=== PATIENT | female | born 1980 | race Caucasian/White ===

== ENCOUNTER → 2017-03-24 | Outpatient (CLI) | payer OTHER ==
[~2017-03-24] MED LIST: ACET-749 PO; BCPILLS PO; CPR500 PO; SYN50 PO; TIMO0.2534
== END | disposition home or self-care (01) ==
LOC: C.PAPS 10:35
PROVIDERS: ATTEND Obstetrics & Gynecology
DX: Z12.4 Encounter for screening for malignant neoplasm of cervix (principal)

== ENCOUNTER → 2017-03-24 | Outpatient (CLI) | payer OTHER | END | disposition home or self-care (01) | LOC: C.LAB1850 15:38 | PROVIDERS: ATTEND Obstetrics & Gynecology | DX: Z11.3 Encounter for screening for infections with a predominantly sexual mode of transmission (principal) ==

== ENCOUNTER → 2017-03-24 | Outpatient (CLI) | payer OTHER ==
[2017-03-29 00:20] LABS: CHLAMYDIA TRACH RNA*** NOT DETECTED (NOT DETECTED); GC (NEIS GONORRHOEAE)RNA** NOT DETECTED (NOT DETECTED); TRICHOMONAS VAGINALIS RNA** NOT DETECTED (NOT DETECTED)
== END | disposition home or self-care (01) ==
LOC: C.LABSPEC 17:36
PROVIDERS: ATTEND Obstetrics & Gynecology
DX: Z11.3 Encounter for screening for infections with a predominantly sexual mode of transmission (principal)

== ENCOUNTER 2022-03-02 07:58 | Inpatient (IN) ==
[2022-03-02] MEDS ORDERED: OXYTOCIN 30 UNITS/500 ML BAG IV PRN ×2 (08:38→09:41)
[2022-03-02] MEDS ORDERED: PENICILLIN G POTASSIUM 6 MU in DEXTROSE 5% 250 ML IV STA (08:38)
[2022-03-02] MEDS: LACTATED RINGER'S 1,000 ML IV PRN ×2 (08:55→18:20)
[2022-03-02 09:38] LABS: Hematocrit (blood only) 35.6 % (37-47); Hemoglobin 11.7 g/dL (12.0-16.0); Mean Corpuscular Hemoglobin 30.3 pg (25-34); Mean Corpuscular Hgb Conc 32.9 g/dL (32-36); Mean Corpuscular Volume 92.2 fL (80-100); Mean Platelet Volume 10.2 fL (7.4-10.4); Platelet Count 239 K/uL (130-400); RDW Coefficient of Variation 14.1 % (11.5-14.5); Red Blood Count 3.86 M/uL (4.2-5.4); White Blood Count 9.77 K/uL (4.8-10.8)
--- NOTE | 2022-03-02 09:50 | History & Physical Report ---
Date of Service March 02, 2022 Assessment & Plan (1) Supervision of elderly primigravida: (2) GBS (group B streptococcus) infection: Plan: 41 y/o G1 at 41 wga presents for IOL BP was elevated initially as pt is very anxious, cuff was changed to bigger size but this was too big so BPs more elevated. Will get labs and see if pt can settle, if not then PIH protocol will need initiated Fetus cat 1 Labor - verbal consent for packer bulb obtained, packer bulb easily placed but dark blood was noted to be coming through catheter shortly after. Fetus remained cat 1 with an accel so will continue to monitor and pt aware. Pit will start up to 10 while balloon in GBS+ - pcn ordered epidural PRN Admission and Anticipated Discharge Date Admission Date: March 02, 2022 History of Present Illness Chief Complaint: IOL Primary Care Provider: NO PCP 41 y/o G1 at 41 wga presents for elective IOL. +FM; denies regular ctx, LOF, VB PNI: AMA> 40 hypothyroid cf carrier GBS+ Past [employer] Hx: G1 Hx LEEP 2007, 10/2020 neg cotest denies hx STIs Allergies Allergy/AdvReac Type Severity Reaction Status Date / Time latex Allergy Severe SHORT OF Verified 03/01/22 10:56 BREATH, HIVES meperidine Allergy Severe Vomiting Verified 03/01/22 10:56 hydrocodone AdvReac Severe Vomiting Verified 03/01/22 10:56 Home Medications Medication Instructions Recorded Confirmed Type bupropion HCl 300 mg 24 hr tablet, 300 mg PO QAM 08/08/20 03/02/22 History extended release (Wellbutrin XL) omeprazole 20 mg capsule,delayed 20 mg PO DAILY 08/08/20 03/02/22 History release timolol 0.5 % eye drops 1 drp OPHTHALMIC (EYE) BID 08/08/20 03/02/22 History prenat.vits,maribeth,[id number] 1 tab PO DAILY 07/17/21 03/02/22 History Jobst Stockings #1 ea 09/22/21 03/01/22 Rx levothyroxine 75 mcg tablet 75 mcg PO DAILY 11/11/21 03/02/22 History Patient History Medical History (Updated 02/05/22 @ 11:55 by Ivett PATEL RN) Achalasia Cervical dysplasia Depression H/O: glaucoma H/O: hypothyroidism History of chicken pox Mild acid reflux Surgical History H/O LEEP H/O right knee surgery H/O wisdom tooth extraction History of esophagogastroduodenoscopy (EGD) Hx laparoscopic cholecystectomy Hx of tonsillectomy Family History (Updated 07/17/21 @ 11:07 by Marquita Montoya) Aunt Breast cancer Mother Diabetes Hypertension Grandmother (Maternal) Heart disease Grandfather (Maternal) Heart disease Other Cancer Social History (Updated 07/17/21 @ 11:08 by Marquita Montoya) Smoking Status: Former smoker Second Hand Exposure: No; Do You Dip or Chew Tobacco: No; Tobacco Cessation Education Requested by Patient: No Hx Alcohol Use: No Hx Substance Use: No Preferred Language: Vincentian Communication Ability: Effective [employer] English Teacher Required: No Beliefs That Will Affect Care: None marital status: Single marital status details: gin Jones (33) [phone] Current Living Situation: Family Current Living Situation Comment: Lives with boyfriend, a dog, and 2 cats. 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 Other Information That Helps Us Care for You: No Feels Safe at Home: Yes Safety Concerns: Feels Safe At This Time Assistive Devices: None Physical Exam Genitourinary: OB Exam Abdomen: + vertex (confirmed by bsus) and + estimated weight (7-8) Manual OB Exam: + cervical dilation 1 cm, + cervical effacement 20% and + station -2 OB Exam Monitor Tracing: + external FHT monitor used, + external uterine monitor used (irreg ctx) and + category I (130/mod/+accel/-decel) Results & Data ([facility]) Vital Signs (Past 12 Hours) Vital Signs Temp Pulse Resp BP 03/02/22 09:33 92 H 164/92 H 03/02/22 09:32 90 182/90 H 03/02/22 09:26 98 H 186/102 H 03/02/22 09:24 91 H 178/90 H 03/02/22 09:12 95 H 179/92 H 03/02/22 08:10 98.4 F 97 H 18 160/89 H 03/02/22 08:08 97 H 160/89 H 03/02/22 08:06 100 H 174/96 H Laboratory Results OB Labs: Blood Type B Positive 07/24/21 Antibody Screen NEGATIVE 07/24/21 Hemoglobin 11.5 g/dL (12.0-16.0) L 12/11/21 Hematocrit 35.6 % (37-47) L 12/11/21 Mean Corpuscular Volume 93.3 fL (80-100) 07/24/21 Platelet Count 248 K/uL (130-400) 07/24/21 Rubella IgG Antibody Immune (Immune) 07/24/21 Rapid Plasma Reagin Nonreactive (Nonreactive) 07/24/21 Hepatitis B Surface Antigen Neg (Neg) 07/24/21 HIV (1&2) Ab and P24 Ag, 4th Gener Neg (Neg) 07/24/21 Glucose 1 Hour 50 gm Load 168 mg/dl (70-130) H 09/22/21 OB Optional Labs: Chlamydia trachomatis RNA NOT DETECTED (NOT DETECTED) 07/24/21 Neisseria gonorrhoeae RNA NOT DETECTED (NOT DETECTED) 07/24/21 Thyroid Stimulating Hormone (TSH) 1.790 uIu/ml (0.300-4.500) 07/24/21 GBS+ Diagnostic Findings 01/06 EFW 70%, post plac Coding Level of Care Code None Diagnoses Supervision of elderly primigravida O09.519 GBS (group B streptococcus) infection A49.1
[2022-03-02] MEDS ORDERED: LABETALOL HCL IV 5 MG/ML 20ML IV STA (10:02)
[2022-03-02] MEDS ORDERED: MAG SULFATE 4GM BOLUS FROM BAG IV ONE (10:02)
[2022-03-02 10:41] LABS: Albumin Globulin Ratio 1.2 (0.9-2); Albumin Level 3.4 gm/dl (3.4-5.0); BUN Creatinine Ratio 27.1 (10-20); Bilirubin,Total 0.3 mg/dl (0.2-1.0); Creatinine Clr Calc Pharmacy 175.1 ml/min; Est GFR (African American) 142.2 ml/min; Est GFR (Non-African American) 122.7 ml/min; Globulin 2.9 gm/dl (2.5-4.0); Potassium 3.8 mmol/L (3.5-5.1); Total Protein 6.3 gm/dl (6.0-8.3)
[2022-03-02] MEDS: MAGNESIUM SULFATE / WTR 40 GM/1,000 ML BAG IV SCH (10:45)
--- NOTE | 2022-03-02 11:23 | Communication Note ---
Date of Service: March 02, 2022 BPs were noted to remain elevated in severe range following change to appropriate BP cuff, and even when pt denied feeling more anxious. Denies s/s pre-eclampsia. Labs were ordered however given persistence of severe ranges, IV labetalol 20mg x 1 was given and magnesium started due to severe gestational hypertension. CMP has returned as normal, UP:C is currently pending. BPs improved to mild range BPs following labetalol and magnesium. Nursing noted bloody show but no further bleeding from packer balloon
[2022-03-02 11:43] LABS: Creatinine Urine Random 28.1 mg/dl; Protein Creatinine Ratio Urine 0.5 (0-0.2)
[2022-03-02] MEDS: PENICILLIN G POTASSIUM 3 MU in DEXTROSE 5% 100 ML IV PRN ×3 (13:23→21:30)
--- NOTE | 2022-03-02 17:17 | Labor Progress Brief Note ---
Date of Service March 02, 2022 Subjective Packer bulb out, feeling better Assessment & Plan (1) Supervision of elderly primigravida: (2) GBS (group B streptococcus) infection: Plan: 41 y/o G1 at 41 wga presents for IOL VSS Fetus cat 1 Labor - packer balloon out, will titrate pit PET w/ SF - on mag, met criteria by BPs and UPC. BPs ok now, continue to monitor GBS+ - pcn ordered epidural PRN Admission and Anticipated Discharge Date Admission Date: March 02, 2022 Physical Exam Genitourinary: Manual OB Exam: + cervical dilation 4 cm, + cervical effacement 50% and + station -2 OB Exam Monitor Tracing: + external FHT monitor used, + external uterine monitor used (q3-5) and + category I (125/mod/+accel/-decel) Results & Data ([facility]) Vital Signs (Past 12 Hours) Vital Signs Temp Pulse Resp BP Pulse Ox 03/02/22 17:10 91 H 99 03/02/22 17:05 91 H 97 03/02/22 17:01 91 H 139/80 03/02/22 17:00 90 99 03/02/22 16:55 93 H 99 03/02/22 16:50 90 99 03/02/22 16:45 89 99 03/02/22 16:40 90 98 03/02/22 16:35 89 97 03/02/22 16:31 87 128/76 03/02/22 16:30 90 18 98 03/02/22 16:25 90 98 03/02/22 16:20 92 H 97 03/02/22 16:15 89 97 03/02/22 16:10 88 99 03/02/22 16:05 89 96 03/02/22 16:01 87 138/71 03/02/22 16:00 93 H 98 03/02/22 15:55 90 96 03/02/22 15:50 91 H 96 03/02/22 15:45 88 97 03/02/22 15:40 87 97 03/02/22 15:35 85 97 03/02/22 15:30 97.9 F 92 H 18 132/62 97 03/02/22 15:25 80 97 03/02/22 15:20 88 137/77 97 03/02/22 15:15 89 97 03/02/22 15:10 91 H 98 03/02/22 15:05 89 139/79 100 03/02/22 15:01 16 03/02/22 15:00 89 95 03/02/22 14:59 89 93 03/02/22 14:54 89 92 03/02/22 14:53 87 93 03/02/22 14:49 86 133/76 94 03/02/22 14:47 88 93 03/02/22 14:44 91 H 92 03/02/22 14:39 87 91 03/02/22 14:35 85 133/81 03/02/22 14:33 93 H 89 L 03/02/22 14:32 82 90 03/02/22 14:30 16 03/02/22 14:28 89 97 03/02/22 14:23 85 96 03/02/22 14:21 84 124/74 03/02/22 14:18 87 97 03/02/22 14:13 86 97 03/02/22 14:08 86 98 03/02/22 14:05 88 132/80 03/02/22 14:03 87 97 03/02/22 14:00 16 03/02/22 13:58 87 100 03/02/22 13:53 89 100 03/02/22 13:50 85 135/80 03/02/22 13:48 90 100 03/02/22 13:43 90 99 03/02/22 13:38 91 H 98 03/02/22 13:35 89 143/87 H 03/02/22 13:33 95 H 100 03/02/22 13:30 16 03/02/22 13:28 85 99 03/02/22 13:23 87 98 03/02/22 13:20 93 H 113/77 03/02/22 13:18 94 H 97 03/02/22 13:13 92 H 97 03/02/22 13:08 84 96 03/02/22 13:05 87 133/83 03/02/22 13:03 91 H 96 03/02/22 13:00 16 03/02/22 12:58 90 96 03/02/22 12:53 87 96 03/02/22 12:49 88 128/76 03/02/22 12:48 82 95 03/02/22 12:43 89 95 03/02/22 12:38 98.1 F 88 18 95 03/02/22 12:33 88 93 03/02/22 12:32 87 94 03/02/22 12:31 89 119/72 03/02/22 12:30 16 03/02/22 12:28 90 93 03/02/22 12:27 89 94 03/02/22 12:23 93 H 95 03/02/22 12:20 85 135/78 03/02/22 12:18 85 94 03/02/22 12:15 80 94 03/02/22 12:13 85 95 03/02/22 12:11 82 129/74 03/02/22 12:08 85 96 03/02/22 12:03 84 96 03/02/22 12:02 84 134/81 03/02/22 12:00 16 03/02/22 11:58 85 96 03/02/22 11:53 84 97 03/02/22 11:51 83 132/83 03/02/22 11:48 83 98 03/02/22 11:43 81 97 03/02/22 11:42 81 138/83 03/02/22 11:38 79 95 03/02/22 11:33 83 95 03/02/22 11:32 84 136/71 03/02/22 11:30 16 03/02/22 11:28 84 97 03/02/22 11:23 71 98 03/02/22 11:21 83 136/86 03/02/22 11:18 84 97 03/02/22 11:13 85 97 03/02/22 11:11 85 142/91 H 03/02/22 11:08 80 96 03/02/22 11:03 86 96 03/02/22 11:00 83 18 147/83 H 03/02/22 10:58 91 H 98 03/02/22 10:53 90 98 03/02/22 10:51 77 142/82 H 03/02/22 10:48 81 96 03/02/22 10:45 18 03/02/22 10:43 83 97 03/02/22 10:41 82 135/75 03/02/22 10:38 81 98 03/02/22 10:34 83 137/76 03/02/22 10:33 81 97 03/02/22 10:25 18 03/02/22 10:19 88 158/96 H 03/02/22 10:17 87 161/89 H 03/02/22 10:10 98.6 F 18 03/02/22 09:57 86 173/95 H 03/02/22 09:33 92 H 164/92 H 03/02/22 09:32 90 182/90 H 03/02/22 09:26 98 H 186/102 H 03/02/22 09:24 91 H 178/90 H 03/02/22 09:12 95 H 179/92 H 03/02/22 08:10 98.4 F 97 H 18 160/89 H 03/02/22 08:08 97 H 160/89 H 03/02/22 08:06 100 H 174/96 H Coding Level of Care Code None Diagnoses Supervision of elderly primigravida O09.519 GBS (group B streptococcus) infection A49.1
--- NOTE | 2022-03-02 19:19 | Labor Progress Brief Note ---
Date of Service March 02, 2022 Subjective Feels better on side Assessment & Plan (1) Supervision of elderly primigravida: (2) GBS (group B streptococcus) infection: Plan: 41 y/o G1 at 41 wga presents for IOL VSS Fetus cat 1 Labor - cont pit augmentation, now s/p arom PET w/ SF - on mag, met criteria by BPs and UPC. BPs ok now, continue to monitor GBS+ - pcn ordered epidural PRN Admission and Anticipated Discharge Date Admission Date: March 02, 2022 Physical Exam Genitourinary: OB Exam Abdomen: + vertex (confirmed by bsus) Manual OB Exam: + cervical dilation (4-5), + cervical effacement 50%, + station -2 and + amniotic fluid (AROM) OB Exam Monitor Tracing: + external FHT monitor used, + external uterine monitor used (q3-5) and + category I (125/mod/+accel/-decel) Results & Data ([facility]) Vital Signs (Past 12 Hours) Vital Signs Temp Pulse Resp BP Pulse Ox 03/02/22 19:15 95 H 97 03/02/22 19:10 96 H 98 03/02/22 19:05 99 H 96 03/02/22 19:01 96 H 129/71 03/02/22 19:00 98 H 97 03/02/22 18:55 96 H 96 03/02/22 18:50 95 H 97 03/02/22 18:45 96 H 98 03/02/22 18:40 95 H 96 03/02/22 18:35 94 H 97 03/02/22 18:31 96 H 137/89 03/02/22 18:30 94 H 18 98 03/02/22 18:25 92 H 99 03/02/22 18:20 90 97 03/02/22 18:15 86 98 03/02/22 18:10 88 99 03/02/22 18:05 90 98 03/02/22 18:01 86 137/86 03/02/22 18:00 88 98 03/02/22 17:55 92 H 97 03/02/22 17:50 92 H 98 03/02/22 17:45 92 H 98 03/02/22 17:40 93 H 99 03/02/22 17:35 97 H 99 03/02/22 17:32 91 H 127/70 03/02/22 17:30 95 H 98 03/02/22 17:25 95 H 98 03/02/22 17:24 18 03/02/22 17:20 94 H 97 03/02/22 17:15 91 H 98 03/02/22 17:10 91 H 99 03/02/22 17:05 91 H 97 03/02/22 17:01 91 H 139/80 03/02/22 17:00 90 99 03/02/22 16:55 93 H 99 03/02/22 16:50 90 99 03/02/22 16:45 89 99 03/02/22 16:40 90 98 03/02/22 16:35 89 97 03/02/22 16:31 87 128/76 03/02/22 16:30 90 18 98 03/02/22 16:25 90 98 03/02/22 16:20 92 H 97 03/02/22 16:15 89 97 03/02/22 16:10 88 99 03/02/22 16:05 89 96 03/02/22 16:01 87 138/71 03/02/22 16:00 93 H 98 03/02/22 15:55 90 96 03/02/22 15:50 91 H 96 03/02/22 15:45 88 97 03/02/22 15:40 87 97 03/02/22 15:35 85 97 03/02/22 15:30 97.9 F 92 H 18 132/62 97 03/02/22 15:25 80 97 03/02/22 15:20 88 137/77 97 03/02/22 15:15 89 97 03/02/22 15:10 91 H 98 03/02/22 15:05 89 139/79 100 03/02/22 15:01 16 03/02/22 15:00 89 95 03/02/22 14:59 89 93 03/02/22 14:54 89 92 03/02/22 14:53 87 93 03/02/22 14:49 86 133/76 94 03/02/22 14:47 88 93 03/02/22 14:44 91 H 92 03/02/22 14:39 87 91 03/02/22 14:35 85 133/81 03/02/22 14:33 93 H 89 L 03/02/22 14:32 82 90 03/02/22 14:30 16 03/02/22 14:28 89 97 03/02/22 14:23 85 96 03/02/22 14:21 84 124/74 03/02/22 14:18 87 97 03/02/22 14:13 86 97 03/02/22 14:08 86 98 03/02/22 14:05 88 132/80 03/02/22 14:03 87 97 03/02/22 14:00 16 03/02/22 13:58 87 100 03/02/22 13:53 89 100 03/02/22 13:50 85 135/80 03/02/22 13:48 90 100 03/02/22 13:43 90 99 03/02/22 13:38 91 H 98 03/02/22 13:35 89 143/87 H 03/02/22 13:33 95 H 100 03/02/22 13:30 16 03/02/22 13:28 85 99 03/02/22 13:23 87 98 03/02/22 13:20 93 H 113/77 03/02/22 13:18 94 H 97 03/02/22 13:13 92 H 97 03/02/22 13:08 84 96 03/02/22 13:05 87 133/83 03/02/22 13:03 91 H 96 03/02/22 13:00 16 03/02/22 12:58 90 96 03/02/22 12:53 87 96 03/02/22 12:49 88 128/76 03/02/22 12:48 82 95 03/02/22 12:43 89 95 03/02/22 12:38 98.1 F 88 18 95 03/02/22 12:33 88 93 03/02/22 12:32 87 94 03/02/22 12:31 89 119/72 03/02/22 12:30 16 03/02/22 12:28 90 93 03/02/22 12:27 89 94 03/02/22 12:23 93 H 95 03/02/22 12:20 85 135/78 03/02/22 12:18 85 94 03/02/22 12:15 80 94 03/02/22 12:13 85 95 03/02/22 12:11 82 129/74 03/02/22 12:08 85 96 03/02/22 12:03 84 96 03/02/22 12:02 84 134/81 03/02/22 12:00 16 03/02/22 11:58 85 96 03/02/22 11:53 84 97 03/02/22 11:51 83 132/83 03/02/22 11:48 83 98 03/02/22 11:43 81 97 03/02/22 11:42 81 138/83 03/02/22 11:38 79 95 03/02/22 11:33 83 95 03/02/22 11:32 84 136/71 03/02/22 11:30 16 03/02/22 11:28 84 97 03/02/22 11:23 71 98 03/02/22 11:21 83 136/86 03/02/22 11:18 84 97 03/02/22 11:13 85 97 03/02/22 11:11 85 142/91 H 03/02/22 11:08 80 96 03/02/22 11:03 86 96 03/02/22 11:00 83 18 147/83 H 03/02/22 10:58 91 H 98 03/02/22 10:53 90 98 03/02/22 10:51 77 142/82 H 03/02/22 10:48 81 96 03/02/22 10:45 18 03/02/22 10:43 83 97 03/02/22 10:41 82 135/75 03/02/22 10:38 81 98 03/02/22 10:34 83 137/76 03/02/22 10:33 81 97 03/02/22 10:25 18 03/02/22 10:19 88 158/96 H 03/02/22 10:17 87 161/89 H 03/02/22 10:10 98.6 F 18 03/02/22 09:57 86 173/95 H 03/02/22 09:33 92 H 164/92 H 03/02/22 09:32 90 182/90 H 03/02/22 09:26 98 H 186/102 H 03/02/22 09:24 91 H 178/90 H 03/02/22 09:12 95 H 179/92 H 03/02/22 08:10 98.4 F 97 H 18 160/89 H 03/02/22 08:08 97 H 160/89 H 03/02/22 08:06 100 H 174/96 H Coding Level of Care Code None Diagnoses Supervision of elderly primigravida O09.519 GBS (group B streptococcus) infection A49.1
[2022-03-02] MEDS ORDERED: ePHEDrine sulfate 50 MG/ML AMP ONE (19:53)
[2022-03-02] MEDS ORDERED: fentaNYL 2MCG/ML ROPIVACAINE 1.25MG/ML 100 ML BAG EPI ONE (19:54)
[2022-03-02] MEDS ORDERED: SODIUM CHLORIDE 0.9% INJ 10 ML VIAL ONE (19:54)
[2022-03-02] MEDS ORDERED: fentaNYL citrate 100 MCG/2 ML VIAL ONE (19:54)
[2022-03-02] MEDS ORDERED: BUPIVACAINE 0.25% 30 ML VIAL ONE (19:54)
--- NOTE | 2022-03-02 21:00 | Anesthesiology Consultation ---
Date of Service March 02, 2022 Assessment & Plan Chart Review Chart Review: Acceptable Risk for Labor Epidural Consults Requested none History Height/Weight Height: 5 ft 3 in Weight: 99.337 kg Allergies Allergy/AdvReac Type Severity Reaction Status Date / Time latex Allergy Severe SHORT OF Verified 03/01/22 10:56 BREATH, HIVES meperidine Allergy Severe Vomiting Verified 03/01/22 10:56 hydrocodone AdvReac Severe Vomiting Verified 03/01/22 10:56 Medications Home Medications Medication Instructions Recorded Confirmed Last Taken bupropion HCl 300 mg 24 hr tablet, 300 mg PO QAM 08/08/20 03/02/22 03/02/22 06:00 extended release (Wellbutrin XL) omeprazole 20 mg capsule,delayed 20 mg PO DAILY 08/08/20 03/02/22 03/02/22 06:00 release timolol 0.5 % eye drops 1 drp OPHTHALMIC (EYE) BID 08/08/20 03/02/22 03/02/22 06:00 prenat.vits,maribeth,[id number] 1 tab PO DAILY 07/17/21 03/02/22 03/02/22 06:00 Jobst Stockings #1 ea 09/22/21 03/01/22 Unknown levothyroxine 75 mcg tablet 75 mcg PO DAILY 11/11/21 03/02/22 03/02/22 06:00 Active Medications Generic Name Dose Route Start Last Admin Trade Name Freq PRN Reason Stop Dose Admin Lactated Ringer's 1,000 mls @ 125 mls/hr 03/02/22 08:38 03/02/22 20:19 Lr IV 03/04/22 08:37 75 mls/hr .Q8H PRN Infusion L&D Protocol Protocol Penicillin G Potassium 3 mu/ 106 mls @ 100 mls/hr 03/02/22 11:39 03/02/22 18:20 Dextrose IV 03/12/22 11:38 Infused Q4H PRN Infusion GBS(+) Until Delivery Oxytocin 30 units in 500 mls @ 16 mls/hr 03/02/22 09:41 03/02/22 17:57 Pitocin IV 03/04/22 09:40 0.96 units/hr .Q24H PRN 16 mls/hr Labor Induction/Augmentation Titration Protocol 0.96 UNITS/HR Magnesium Sulfate 40 gm in 1,000 mls @ 50 mls/hr 03/02/22 10:15 03/02/22 15:00 Magnesium Sulfate / Wtr IV 04/01/22 10:14 50 mls/hr .Q20H NICOLLE Infusion Past Medical History Medical History Achalasia Cervical dysplasia Depression H/O: glaucoma H/O: hypothyroidism History of chicken pox Mild acid reflux Past Family History Family History Aunt Breast cancer Mother Diabetes Hypertension Grandmother (Maternal) Heart disease Grandfather (Maternal) Heart disease Other Cancer Past Surgical History Surgical History H/O LEEP H/O right knee surgery H/O wisdom tooth extraction History of esophagogastroduodenoscopy (EGD) Hx laparoscopic cholecystectomy Hx of tonsillectomy Social History Smoking Status: Former smoker Do You Dip or Chew Tobacco: No Hx Alcohol Use: No Hx Substance Use: No substance use type: does not use Physical Exam Vital Signs Last Vital Signs Temp 36.7 C 03/02/22 19:10 Pulse 97 H 03/02/22 20:55 Resp 18 03/02/22 19:30 BP 137/84 03/02/22 20:54 Pulse Ox 97 03/02/22 20:55 Testing Laboratory Results 03/02/22 09:01 03/02/22 10:00
[2022-03-02] MEDS ORDERED: NALOXONE HCL 1 MG in SODIUM CHLORIDE 0.9% 1000ML 1,000 ML IV PRN (21:01)
[2022-03-02] MEDS ORDERED: NALOXONE HCL 0.4 MG/1 ML VIAL/CARP IV PRN (21:01)
[2022-03-02] MEDS ORDERED: diphenhydrAMINE 50 MG/ML VIAL IV PRN (21:01)
[2022-03-02] MEDS ORDERED: NALBUPHINE HCL INJ 10 MG/ML AMP IV PRN (21:01)
[2022-03-02] MEDS ORDERED: ePHEDrine sulfate 50 MG/ML AMP IV PRN (21:01)
[2022-03-02] MEDS ORDERED: ACETAMINOPHEN 500 MG TAB PO PRN (23:10)
[2022-03-02] MEDS ORDERED: Nursing to Pharmacy Communication SCH (23:15)
[2022-03-02] MEDS ORDERED: ACETAMINOPHEN 500 MG TAB ONE (23:21)
[2022-03-03] MEDS ORDERED: fentaNYL citrate 100 MCG/2 ML VIAL ONE ×2 (00:57→03:28)
[2022-03-03] MEDS ORDERED: LIDOCAINE 2% MPF LOCAL 5 ML VIAL INFIL ONE ×2 (00:57→03:28)
--- NOTE | 2022-03-03 01:40 | Communication Note ---
Date of Service: March 03, 2022 Called for pt c/o pain. VSS. Bolused epidural with 2% lidocaine 5cc plus fentanyl 100mcg with relief.
[2022-03-03] MEDS: PENICILLIN G POTASSIUM 3 MU in DEXTROSE 5% 100 ML IV PRN ×4 (01:49→14:03)
[2022-03-03] MEDS: LACTATED RINGER'S 1,000 ML IV PRN ×2 (01:51→15:44)
[2022-03-03] MEDS: fentaNYL 2MCG/ML ROPIVACAINE 1.25MG/ML 100 ML BAG EPI PRN ×3 (03:17→15:07)
--- NOTE | 2022-03-03 03:38 | Communication Note ---
Date of Service: March 03, 2022 Called for pt c/o pain. VSS. Bolused epidural with 2% lidocaine plus fentanyl 100mcg with relief.
[2022-03-03] MEDS: MAGNESIUM SULFATE / WTR 40 GM/1,000 ML BAG IV SCH ×2 (03:47→22:29)
--- NOTE | 2022-03-03 05:00 | Labor Progress Brief Note ---
Date of Service March 03, 2022 Subjective Had difficulty with pain again and now more comfortable w/ rebolus Assessment & Plan (1) Supervision of elderly primigravida: (2) GBS (group B streptococcus) infection: Plan: 41 y/o G1 at 41 wga presents for IOL VSS Fetus cat 1 Labor - 7-8 since around 2AM, pit is at 24. Pt has hx LEEP, the inner edge of the cervix feels tight like there is scarring. As pit is maxed to 24 will do a pit break and restart in 45 min PET w/ SF - on mag, met criteria by BPs and UPC. BPs ok now, continue to monitor. UOP was adequate, decreased now and appears concentrated. 250cc bolus given to see if will help GBS+ - pcn ordered epidural in place Admission and Anticipated Discharge Date Admission Date: March 02, 2022 Physical Exam Genitourinary: Manual OB Exam: + cervical dilation (7-8), + cervical effacem ent 80% and + station -2 OB Exam Monitor Tracing: + external FHT monitor used, + intra-uterine pressure catheter used (130/mod/+accel/-decel) and + category I (130/mod/+accel/-decel) Results & Data ([facility]) Vital Signs (Past 12 Hours) Vital Signs Temp Pulse Resp BP Pulse Ox 03/03/22 04:50 95 H 100 03/03/22 04:47 96 H 171/96 H 03/03/22 04:45 95 H 99 03/03/22 04:40 93 H 98 03/03/22 04:35 93 H 97 03/03/22 04:32 93 H 156/88 H 03/03/22 04:30 94 H 18 95 03/03/22 04:26 92 H 94 03/03/22 04:25 93 H 95 03/03/22 04:21 93 H 94 03/03/22 04:20 93 H 95 03/03/22 04:16 94 H 137/78 94 03/03/22 04:15 94 H 95 03/03/22 04:10 94 H 95 03/03/22 04:05 95 H 95 03/03/22 04:01 95 H 94 03/03/22 04:00 93 H 139/73 95 03/03/22 03:55 92 H 96 03/03/22 03:54 91 H 141/75 H 94 03/03/22 03:50 95 H 94 03/03/22 03:49 96 H 125/71 94 03/03/22 03:45 97 H 93 03/03/22 03:44 99 H 139/81 03/03/22 03:43 101 H 94 03/03/22 03:40 99 H 96 03/03/22 03:39 96 H 159/85 H 03/03/22 03:35 102 H 97 03/03/22 03:33 97 H 174/84 H 03/03/22 03:32 20 03/03/22 03:30 101 H 18 98 03/03/22 03:27 96 H 185/91 H 03/03/22 03:25 97 H 97 03/03/22 03:20 101 H 99 03/03/22 03:15 116 H 97 03/03/22 03:14 98.4 F 03/03/22 03:12 107 H 178/124 H 03/03/22 03:10 105 H 98 03/03/22 03:05 101 H 97 03/03/22 03:00 100 H 20 98 03/03/22 02:57 102 H 184/101 H 03/03/22 02:55 102 H 96 03/03/22 02:50 104 H 95 03/03/22 02:48 103 H 94 03/03/22 02:45 101 H 96 03/03/22 02:42 100 H 179/95 H 03/03/22 02:40 100 H 98 03/03/22 02:35 101 H 99 03/03/22 02:34 101 H 94 03/03/22 02:30 103 H 20 98 03/03/22 02:28 100 H 159/94 H 03/03/22 02:27 100 H 94 03/03/22 02:25 100 H 97 03/03/22 02:20 102 H 98 03/03/22 02:17 18 03/03/22 02:16 99 H 93 03/03/22 02:15 101 H 97 03/03/22 02:12 97 H 189/94 H 03/03/22 02:10 96 H 98 03/03/22 02:05 94 H 94 03/03/22 02:00 94 H 97 03/03/22 01:57 95 H 139/81 03/03/22 01:55 95 H 96 03/03/22 01:50 94 H 95 03/03/22 01:45 93 H 96 03/03/22 01:43 91 H 150/78 H 03/03/22 01:40 93 H 95 03/03/22 01:35 96 H 95 03/03/22 01:31 18 03/03/22 01:30 94 H 95 03/03/22 01:28 93 H 136/84 03/03/22 01:25 94 H 96 03/03/22 01:20 101 H 96 03/03/22 01:15 97 H 96 03/03/22 01:12 96 H 127/73 03/03/22 01:10 97 H 96 03/03/22 01:05 94 H 97 03/03/22 01:01 98.4 F 18 03/03/22 01:00 93 H 98 03/03/22 00:58 90 140/82 03/03/22 00:55 92 H 96 03/03/22 00:50 86 98 03/03/22 00:45 91 H 97 03/03/22 00:43 88 149/74 H 03/03/22 00:41 89 94 03/03/22 00:40 89 95 03/03/22 00:35 91 H 99 03/03/22 00:34 89 93 03/03/22 00:30 88 18 99 03/03/22 00:27 92 H 94 03/03/22 00:26 90 143/72 H 03/03/22 00:25 89 100 03/03/22 00:22 91 H 94 03/03/22 00:20 88 100 03/03/22 00:15 89 96 03/03/22 00:13 88 136/68 03/03/22 00:10 91 H 97 03/03/22 00:05 91 H 96 03/03/22 00:01 18 03/03/22 00:00 92 H 99 03/02/22 23:56 88 130/71 03/02/22 23:55 97 H 99 03/02/22 23:50 93 H 100 03/02/22 23:45 92 H 98 03/02/22 23:42 93 H 136/75 03/02/22 23:40 94 H 96 03/02/22 23:35 92 H 96 03/02/22 23:30 93 H 18 96 03/02/22 23:26 89 134/69 03/02/22 23:25 91 H 97 03/02/22 23:20 91 H 96 03/02/22 23:15 91 H 96 03/02/22 23:11 90 138/76 03/02/22 23:10 90 95 03/02/22 23:05 90 95 03/02/22 23:00 98.2 F 91 H 18 95 03/02/22 22:58 90 128/73 03/02/22 22:55 97 H 96 03/02/22 22:50 94 H 96 03/02/22 22:45 101 H 97 03/02/22 22:42 107 H 138/86 03/02/22 22:40 102 H 96 03/02/22 22:35 95 H 96 03/02/22 22:30 96 H 18 95 03/02/22 22:26 98 H 124/68 03/02/22 22:25 95 H 95 03/02/22 22:22 98 H 94 03/02/22 22:20 95 H 95 03/02/22 22:15 97 H 95 03/02/22 22:12 95 H 127/71 03/02/22 22:10 96 H 95 03/02/22 22:05 94 H 95 03/02/22 22:02 88 94 03/02/22 22:00 90 18 95 03/02/22 21:56 96 H 123/71 03/02/22 21:55 94 H 96 03/02/22 21:50 97 H 95 03/02/22 21:45 96 H 96 03/02/22 21:42 95 H 132/73 03/02/22 21:40 96 H 95 03/02/22 21:35 95 H 96 03/02/22 21:30 98.8 F 104 H 18 95 03/02/22 21:25 106 H 126/77 95 03/02/22 21:21 101 H 145/75 H 03/02/22 21:20 101 H 96 03/02/22 21:15 99 H 138/77 96 03/02/22 21:10 102 H 146/81 H 96 03/02/22 21:05 102 H 136/81 97 03/02/22 21:00 98 H 135/91 97 06/07/22 20:55 97 H 97 03/02/22 20:54 95 H 137/84 03/02/22 20:52 96 H 150/90 H 03/02/22 20:50 96 H 18 145/71 H 96 03/02/22 20:48 94 H 141/79 H 03/02/22 20:46 88 148/86 H 03/02/22 20:45 84 99 03/02/22 20:44 82 139/82 03/02/22 20:40 97 H 99 03/02/22 20:35 93 H 99 03/02/22 20:30 101 H 99 03/02/22 20:25 93 H 98 03/02/22 20:23 90 166/79 H 03/02/22 20:20 93 H 99 03/02/22 20:15 92 H 99 03/02/22 20:10 92 H 99 03/02/22 20:05 101 H 100 03/02/22 20:04 94 H 171/77 H 03/02/22 20:02 90 162/90 H 03/02/22 20:00 94 H 98 03/02/22 19:55 93 H 99 03/02/22 19:50 92 H 98 03/02/22 19:45 91 H 98 03/02/22 19:40 96 H 100 03/02/22 19:35 97 H 99 03/02/22 19:31 93 H 144/85 H 03/02/22 19:30 92 H 18 99 03/02/22 19:25 92 H 99 03/02/22 19:20 94 H 98 03/02/22 19:15 95 H 97 03/02/22 19:10 98.1 F 96 H 98 03/02/22 19:05 99 H 96 03/02/22 19:01 96 H 129/71 03/02/22 19:00 98 H 97 03/02/22 18:55 96 H 96 03/02/22 18:50 95 H 97 03/02/22 18:45 96 H 98 03/02/22 18:40 95 H 96 03/02/22 18:35 94 H 97 03/02/22 18:31 96 H 137/89 03/02/22 18:30 94 H 18 98 03/02/22 18:25 92 H 99 03/02/22 18:20 90 97 03/02/22 18:15 86 98 03/02/22 18:10 88 99 03/02/22 18:05 90 98 03/02/22 18:01 86 137/86 03/02/22 18:00 88 98 03/02/22 17:55 92 H 97 03/02/22 17:50 92 H 98 03/02/22 17:45 92 H 98 03/02/22 17:40 93 H 99 03/02/22 17:35 97 H 99 03/02/22 17:32 91 H 127/70 03/02/22 17:30 95 H 98 03/02/22 17:25 95 H 98 03/02/22 17:24 18 03/02/22 17:20 94 H 97 03/02/22 17:15 91 H 98 03/02/22 17:10 91 H 99 03/02/22 17:05 91 H 97 03/02/22 17:01 91 H 139/80 03/02/22 17:00 90 99 Coding Level of Care Code None Diagnoses Supervision of elderly primigravida O09.519 GBS (group B streptococcus) infection A49.1
[2022-03-03] MEDS ORDERED: LACTATED RINGER'S 500 ML IV ONE (07:11)
[2022-03-03 08:04] LABS: Albumin Level 3.4 gm/dl (3.4-5.0); BUN Creatinine Ratio 19.6 (10-20); Bilirubin,Total 0.7 mg/dl (0.2-1.0); Creatinine Clr Calc Pharmacy 164.8 ml/min; Est GFR (African American) 139.4 ml/min; Est GFR (Non-African American) 120.3 ml/min; Globulin 3.3 gm/dl (2.5-4.0); Magnesium Therapeutic L&D Only 5.5 mg/dL (4.0-8.0); Potassium 4.4 mmol/L (3.5-5.1); Total Protein 6.7 gm/dl (6.0-8.3)
[2022-03-03] MEDS ORDERED: SODIUM CHLORIDE 0.9% 1000ML 1,000 ML IV SCH ×2 (08:45→17:00)
--- NOTE | 2022-03-03 10:55 | Labor Progress Brief Note ---
Date of Service March 03, 2022 Subjective Patient notes back discomfort and pressure. Assessment & Plan (1) Supervision of elderly primigravida: Plan: When I assumed care of the patient this am, she had just restarted pitocin after a holiday. Started at 2 and now at 14. Contractions are not yet adequate. Will continue to increase pitocin in hopes of attaining adequate contractions. Fetus reassuring category one. Admission and Anticipated Discharge Date Admission Date: March 02, 2022 Physical Exam Physical Exam: cx--/-1 toco--q3-5min efm--140s wtih mod variability, small accels rare decels. iupc replaced. pit at 14 Results & Data ([facility]) Vital Signs (Past 12 Hours) Vital Signs Temp Pulse Resp BP Pulse Ox 03/03/22 10:49 101 H 03/03/22 10:45 106 H 175/82 H 03/03/22 10:44 107 H 98 03/03/22 10:39 101 H 100 03/03/22 10:34 96 H 99 03/03/22 10:29 101 H 100 03/03/22 10:24 98 H 99 03/03/22 10:19 98 H 99 03/03/22 10:15 98 H 173/82 H 03/03/22 10:14 102 H 100 03/03/22 10:09 101 H 100 03/03/22 10:04 100 H 100 03/03/22 09:59 101 H 100 03/03/22 09:54 102 H 100 03/03/22 09:49 106 H 99 03/03/22 09:47 100 H 172/81 H 03/03/22 09:44 99 H 100 03/03/22 09:39 104 H 100 03/03/22 09:34 99 H 99 03/03/22 09:29 103 H 100 03/03/22 09:24 106 H 100 03/03/22 09:19 105 H 98 03/03/22 09:16 103 H 147/88 H 03/03/22 09:14 106 H 98 03/03/22 09:09 103 H 96 03/03/22 09:07 36.7 C 20 03/03/22 09:04 102 H 96 03/03/22 08:59 102 H 98 03/03/22 08:54 104 H 100 03/03/22 08:32 100 H 151/80 H 03/03/22 08:20 20 03/03/22 08:16 100 H 152/70 H 03/03/22 08:05 97 H 98 03/03/22 08:01 93 H 157/80 H 03/03/22 07:54 98 H 100 03/03/22 07:49 97 H 100 03/03/22 07:46 97 H 140/78 03/03/22 07:44 102 H 100 03/03/22 07:39 101 H 100 03/03/22 07:34 105 H 98 03/03/22 07:29 102 H 100 03/03/22 07:24 101 H 98 03/03/22 07:20 20 03/03/22 07:19 97 H 100 03/03/22 07:16 98 H 157/86 H 03/03/22 07:14 99 H 99 03/03/22 07:09 99 H 100 03/03/22 07:04 103 H 99 03/03/22 07:01 98 H 154/85 H 03/03/22 06:59 100 H 99 03/03/22 06:54 99 H 99 03/03/22 06:49 100 H 99 03/03/22 06:46 98 H 160/86 H 03/03/22 06:44 98 H 99 03/03/22 06:39 99 H 99 03/03/22 06:34 98 H 100 03/03/22 06:31 97 H 145/84 H 03/03/22 06:29 98 H 99 03/03/22 06:24 97 H 99 03/03/22 06:19 96 H 99 03/03/22 06:16 96 H 145/82 H 03/03/22 06:14 97 H 100 03/03/22 06:09 98 H 99 03/03/22 06:04 97 H 99 03/03/22 06:01 98 H 18 164/92 H 03/03/22 05:59 96 H 99 03/03/22 05:57 18 03/03/22 05:54 96 H 99 03/03/22 05:49 97 H 99 03/03/22 05:46 97 H 151/93 H 03/03/22 05:44 97 H 99 03/03/22 05:39 98 H 100 03/03/22 05:31 98 H 18 143/87 H 03/03/22 05:16 96 H 156/90 H 03/03/22 05:10 97 H 99 03/03/22 05:05 96 H 99 03/03/22 05:02 18 03/03/22 05:01 96 H 161/90 H 03/03/22 05:00 36.9 C 96 H 99 03/03/22 04:55 95 H 98 03/03/22 04:50 95 H 100 03/03/22 04:47 96 H 171/96 H 03/03/22 04:45 95 H 99 03/03/22 04:40 93 H 98 03/03/22 04:35 93 H 97 03/03/22 04:32 93 H 156/88 H 03/03/22 04:30 94 H 18 95 03/03/22 04:26 92 H 94 03/03/22 04:25 93 H 95 03/03/22 04:21 93 H 94 03/03/22 04:20 93 H 95 03/03/22 04:16 94 H 137/78 94 03/03/22 04:15 94 H 95 03/03/22 04:10 94 H 95 03/03/22 04:05 95 H 95 03/03/22 04:01 95 H 94 03/03/22 04:00 93 H 139/73 95 03/03/22 03:55 92 H 96 03/03/22 03:54 91 H 141/75 H 94 03/03/22 03:50 95 H 94 03/03/22 03:49 96 H 125/71 94 03/03/22 03:45 97 H 93 03/03/22 03:44 99 H 139/81 03/03/22 03:43 101 H 94 03/03/22 03:40 99 H 96 03/03/22 03:39 96 H 159/85 H 03/03/22 03:35 102 H 97 03/03/22 03:33 97 H 174/84 H 03/03/22 03:32 20 03/03/22 03:30 101 H 18 98 03/03/22 03:27 96 H 185/91 H 03/03/22 03:25 97 H 97 03/03/22 03:20 101 H 99 03/03/22 03:15 116 H 97 06/08/22 03:14 36.9 C 03/03/22 03:12 107 H 178/124 H 03/03/22 03:10 105 H 98 03/03/22 03:05 101 H 97 03/03/22 03:00 100 H 20 98 03/03/22 02:57 102 H 184/101 H 03/03/22 02:55 102 H 96 03/03/22 02:50 104 H 95 03/03/22 02:48 103 H 94 03/03/22 02:45 101 H 96 03/03/22 02:42 100 H 179/95 H 03/03/22 02:40 100 H 98 03/03/22 02:35 101 H 99 03/03/22 02:34 101 H 94 03/03/22 02:30 103 H 20 98 03/03/22 02:28 100 H 159/94 H 03/03/22 02:27 100 H 94 03/03/22 02:25 100 H 97 03/03/22 02:20 102 H 98 03/03/22 02:17 18 03/03/22 02:16 99 H 93 03/03/22 02:15 101 H 97 03/03/22 02:12 97 H 189/94 H 03/03/22 02:10 96 H 98 03/03/22 02:05 94 H 94 03/03/22 02:00 94 H 97 03/03/22 01:57 95 H 139/81 03/03/22 01:55 95 H 96 03/03/22 01:50 94 H 95 03/03/22 01:45 93 H 96 03/03/22 01:43 91 H 150/78 H 03/03/22 01:40 93 H 95 03/03/22 01:35 96 H 95 03/03/22 01:31 18 03/03/22 01:30 94 H 95 03/03/22 01:28 93 H 136/84 03/03/22 01:25 94 H 96 03/03/22 01:20 101 H 96 03/03/22 01:15 97 H 96 03/03/22 01:12 96 H 127/73 03/03/22 01:10 97 H 96 03/03/22 01:05 94 H 97 03/03/22 01:01 36.9 C 18 03/03/22 01:00 93 H 98 03/03/22 00:58 90 140/82 03/03/22 00:55 92 H 96 03/03/22 00:50 86 98 03/03/22 00:45 91 H 97 03/03/22 00:43 88 149/74 H 03/03/22 00:41 89 94 03/03/22 00:40 89 95 03/03/22 00:35 91 H 99 03/03/22 00:34 89 93 03/03/22 00:30 88 18 99 03/03/22 00:27 92 H 94 03/03/22 00:26 90 143/72 H 03/03/22 00:25 89 100 03/03/22 00:22 91 H 94 03/03/22 00:20 88 100 03/03/22 00:15 89 96 03/03/22 00:13 88 136/68 03/03/22 00:10 91 H 97 03/03/22 00:05 91 H 96 03/03/22 00:01 18 03/03/22 00:00 92 H 99 03/02/22 23:56 88 130/71 03/02/22 23:55 97 H 99 03/02/22 23:50 93 H 100 03/02/22 23:45 92 H 98 03/02/22 23:42 93 H 136/75 03/02/22 23:40 94 H 96 03/02/22 23:35 92 H 96 03/02/22 23:30 93 H 18 96 03/02/22 23:26 89 134/69 03/02/22 23:25 91 H 97 03/02/22 23:20 91 H 96 03/02/22 23:15 91 H 96 03/02/22 23:11 90 138/76 03/02/22 23:10 90 95 03/02/22 23:05 90 95 03/02/22 23:00 36.8 C 91 H 18 95 03/02/22 22:58 90 128/73 03/02/22 22:55 97 H 96 Coding Level of Care Code None Diagnoses Supervision of elderly primigravida O09.519
--- NOTE | 2022-03-03 14:00 | Labor Progress Brief Note ---
Date of Service March 03, 2022 Subjective Pateint became uncomfortable with lots of pressure. Assessment & Plan (1) Supervision of elderly primigravida: (2) Preeclampsia: Plan: Poor contractions pattern and inadequate mvus. fetus reassuring mostly category one. She does seem to be making some slow but positive progress. Will continue for now. Pressures are mostly in the mild range in intermittently elevated when she gets uncomfortable as she is now. Do not think treatment indicated at this time. Patient is getting frustrated and tired. "Not sure home much longer I can do this". Tried to encourage and let her know she is making progress and reassure. Do have some concern for need for c/s as cannot get an adequate pattern. Admission and Anticipated Discharge Date Admission Date: March 02, 2022 Physical Exam Physical Exam: cx-- toco--inadequate contraction pattern, runs of contractions, pit at 22 efm--145 with mod variabitiy, accels present, variable /early with contractions. Results & Data ([facility]) Vital Signs (Past 12 Hours) Vital Signs Temp Pulse Resp BP Pulse Ox 03/03/22 13:54 101 H 164/85 H 03/03/22 13:52 106 H 174/87 H 03/03/22 13:50 100 H 170/88 H 03/03/22 13:48 100 H 166/88 H 03/03/22 13:46 104 H 167/91 H 03/03/22 13:15 102 H 144/83 H 03/03/22 12:54 103 H 100 03/03/22 12:49 102 H 99 03/03/22 12:45 107 H 182/92 H 03/03/22 12:44 103 H 100 03/03/22 12:39 100 H 98 03/03/22 12:34 104 H 100 03/03/22 12:29 102 H 97 03/03/22 12:24 103 H 99 03/03/22 12:20 20 03/03/22 12:19 106 H 100 03/03/22 12:15 100 H 143/78 H 03/03/22 12:14 101 H 97 03/03/22 12:09 101 H 96 03/03/22 12:04 99 H 98 03/03/22 11:59 102 H 99 03/03/22 11:54 100 H 99 03/03/22 11:49 101 H 99 03/03/22 11:45 100 H 145/81 H 03/03/22 11:44 100 H 98 03/03/22 11:39 101 H 97 03/03/22 11:34 101 H 100 03/03/22 11:29 105 H 100 03/03/22 11:24 101 H 99 03/03/22 11:20 36.9 C 18 03/03/22 11:19 100 H 98 03/03/22 11:15 100 H 140/80 03/03/22 11:14 101 H 98 03/03/22 11:09 101 H 100 03/03/22 11:04 99 H 97 03/03/22 10:59 99 H 100 03/03/22 10:54 102 H 100 03/03/22 10:49 101 H 100 03/03/22 10:45 106 H 175/82 H 03/03/22 10:44 107 H 98 03/03/22 10:39 101 H 100 03/03/22 10:34 96 H 99 03/03/22 10:29 101 H 100 03/03/22 10:24 98 H 99 03/03/22 10:20 18 03/03/22 10:19 98 H 99 03/03/22 10:15 98 H 173/82 H 03/03/22 10:14 102 H 100 03/03/22 10:09 101 H 100 03/03/22 10:04 100 H 100 03/03/22 09:59 101 H 100 03/03/22 09:54 102 H 100 03/03/22 09:49 106 H 99 03/03/22 09:47 100 H 172/81 H 03/03/22 09:44 99 H 100 03/03/22 09:39 104 H 100 03/03/22 09:34 99 H 99 03/03/22 09:29 103 H 100 03/03/22 09:24 106 H 100 03/03/22 09:20 20 03/03/22 09:19 105 H 98 03/03/22 09:16 103 H 147/88 H 03/03/22 09:14 106 H 98 03/03/22 09:09 103 H 96 03/03/22 09:07 36.7 C 20 03/03/22 09:04 102 H 96 03/03/22 08:59 102 H 98 03/03/22 08:54 104 H 100 03/03/22 08:32 100 H 151/80 H 03/03/22 08:20 20 03/03/22 08:16 100 H 152/70 H 03/03/22 08:05 97 H 98 03/03/22 08:01 93 H 157/80 H 03/03/22 07:54 98 H 100 03/03/22 07:49 97 H 100 03/03/22 07:46 97 H 140/78 03/03/22 07:44 102 H 100 03/03/22 07:39 101 H 100 03/03/22 07:34 105 H 98 03/03/22 07:29 102 H 100 03/03/22 07:24 101 H 98 03/03/22 07:20 20 03/03/22 07:19 97 H 100 03/03/22 07:16 98 H 157/86 H 03/03/22 07:14 99 H 99 03/03/22 07:09 99 H 100 03/03/22 07:04 103 H 99 03/03/22 07:01 98 H 154/85 H 03/03/22 06:59 100 H 99 03/03/22 06:54 99 H 99 03/03/22 06:49 100 H 99 03/03/22 06:46 98 H 160/86 H 03/03/22 06:44 98 H 99 03/03/22 06:39 99 H 99 03/03/22 06:34 98 H 100 03/03/22 06:31 97 H 145/84 H 03/03/22 06:29 98 H 99 03/03/22 06:24 97 H 99 03/03/22 06:19 96 H 99 03/03/22 06:16 96 H 145/82 H 03/03/22 06:14 97 H 100 03/03/22 06:09 98 H 99 03/03/22 06:04 97 H 99 03/03/22 06:01 98 H 18 164/92 H 03/03/22 05:59 96 H 99 03/03/22 05:57 18 03/03/22 05:54 96 H 99 03/03/22 05:49 97 H 99 03/03/22 05:46 97 H 151/93 H 03/03/22 05:44 97 H 99 03/03/22 05:39 98 H 100 03/03/22 05:31 98 H 18 143/87 H 03/03/22 05:16 96 H 156/90 H 03/03/22 05:10 97 H 99 03/03/22 05:05 96 H 99 03/03/22 05:02 18 03/03/22 05:01 96 H 161/90 H 03/03/22 05:00 36.9 C 96 H 99 03/03/22 04:55 95 H 98 03/03/22 04:50 95 H 100 03/03/22 04:47 96 H 171/96 H 03/03/22 04:45 95 H 99 03/03/22 04:40 93 H 98 03/03/22 04:35 93 H 97 03/03/22 04:32 93 H 156/88 H 03/03/22 04:30 94 H 18 95 03/03/22 04:26 92 H 94 03/03/22 04:25 93 H 95 03/03/22 04:21 93 H 94 03/03/22 04:20 93 H 95 03/03/22 04:16 94 H 137/78 94 03/03/22 04:15 94 H 95 03/03/22 04:10 94 H 95 03/03/22 04:05 95 H 95 03/03/22 04:01 95 H 94 03/03/22 04:00 93 H 139/73 95 03/03/22 03:55 92 H 96 03/03/22 03:54 91 H 141/75 H 94 03/03/22 03:50 95 H 94 03/03/22 03:49 96 H 125/71 94 03/03/22 03:45 97 H 93 03/03/22 03:44 99 H 139/81 03/03/22 03:43 101 H 94 03/03/22 03:40 99 H 96 03/03/22 03:39 96 H 159/85 H 03/03/22 03:35 102 H 97 03/03/22 03:33 97 H 174/84 H 03/03/22 03:32 20 03/03/22 03:30 101 H 18 98 03/03/22 03:27 96 H 185/91 H 03/03/22 03:25 97 H 97 03/03/22 03:20 101 H 99 03/03/22 03:15 116 H 97 03/03/22 03:14 36.9 C 03/03/22 03:12 107 H 178/124 H 03/03/22 03:10 105 H 98 03/03/22 03:05 101 H 97 03/03/22 03:00 100 H 20 98 03/03/22 02:57 102 H 184/101 H 03/03/22 02:55 102 H 96 03/03/22 02:50 104 H 95 03/03/22 02:48 103 H 94 03/03/22 02:45 101 H 96 03/03/22 02:42 100 H 179/95 H 03/03/22 02:40 100 H 98 03/03/22 02:35 101 H 99 03/03/22 02:34 101 H 94 03/03/22 02:30 103 H 20 98 03/03/22 02:28 100 H 159/94 H 03/03/22 02:27 100 H 94 03/03/22 02:25 100 H 97 03/03/22 02:20 102 H 98 03/03/22 02:17 18 03/03/22 02:16 99 H 93 03/03/22 02:15 101 H 97 03/03/22 02:12 97 H 189/94 H 03/03/22 02:10 96 H 98 03/03/22 02:05 94 H 94 03/03/22 02:00 94 H 97 Coding Level of Care Code None Diagnoses Supervision of elderly primigravida O09.519 Preeclampsia O14.90
[2022-03-03] MEDS ORDERED: AZITHROMYCIN 500 MG in DEXTROSE 5% 250 ML IV STA (15:28)
--- NOTE | 2022-03-03 15:28 | Labor Progress Brief Note ---
Date of Service March 03, 2022 Subjective Patient got another bolus and then was comfortable. then she got suddenly very uncomfortable and notes lots of pressure. Assessment & Plan (1) Preeclampsia: Plan: Patient does not yet have adequate contractions. For all intents and purposes she has made minimal change since 2am. Explained that she still may make change and achieve vaginal delivery if can get contractions adequate. She is no longer willing to continue with labor and requests c/s. r/b/se of discussed with patient. She declines further attempts at vaginal delivery and desires to proceed. Understands the risk of surgery. Will see if anesthesia decides on anesthesia for this procedure. Admission and Anticipated Discharge Date Admission Date: March 02, 2022 Physical Exam Physical Exam: cx-- (swelling)/-1 toco--q2-4, pit at 24, probably not adequate efm--140s with mod variability, small accels , no decels Results & Data ([facility]) Vital Signs (Past 12 Hours) Vital Signs Temp Pulse Resp BP Pulse Ox 03/03/22 14:46 105 H 150/80 H 03/03/22 14:37 101 H 149/78 H 03/03/22 14:26 101 H 151/83 H 03/03/22 14:16 102 H 150/79 H 03/03/22 14:07 101 H 152/76 H 03/03/22 13:54 101 H 164/85 H 03/03/22 13:52 106 H 174/87 H 03/03/22 13:50 100 H 170/88 H 03/03/22 13:48 100 H 166/88 H 03/03/22 13:46 104 H 167/91 H 03/03/22 13:15 37.0 C 102 H 18 144/83 H 03/03/22 12:54 103 H 100 03/03/22 12:49 102 H 99 03/03/22 12:45 107 H 182/92 H 03/03/22 12:44 103 H 100 03/03/22 12:39 100 H 98 03/03/22 12:34 104 H 100 03/03/22 12:29 102 H 97 03/03/22 12:24 103 H 99 03/03/22 12:20 20 03/03/22 12:19 106 H 100 03/03/22 12:15 100 H 143/78 H 03/03/22 12:14 101 H 97 03/03/22 12:09 101 H 96 03/03/22 12:04 99 H 98 03/03/22 11:59 102 H 99 03/03/22 11:54 100 H 99 03/03/22 11:49 101 H 99 03/03/22 11:45 100 H 145/81 H 03/03/22 11:44 100 H 98 03/03/22 11:39 101 H 97 03/03/22 11:34 101 H 100 03/03/22 11:29 105 H 100 03/03/22 11:24 101 H 99 03/03/22 11:20 36.9 C 18 03/03/22 11:19 100 H 98 03/03/22 11:15 100 H 140/80 03/03/22 11:14 101 H 98 03/03/22 11:09 101 H 100 03/03/22 11:04 99 H 97 03/03/22 11:03 36.7 C 20 03/03/22 10:59 99 H 100 03/03/22 10:54 102 H 100 03/03/22 10:49 101 H 100 03/03/22 10:45 106 H 175/82 H 03/03/22 10:44 107 H 98 03/03/22 10:39 101 H 100 03/03/22 10:34 96 H 99 03/03/22 10:29 101 H 100 03/03/22 10:24 98 H 99 03/03/22 10:20 18 03/03/22 10:19 98 H 99 03/03/22 10:15 98 H 173/82 H 03/03/22 10:14 102 H 100 03/03/22 10:09 101 H 100 03/03/22 10:04 100 H 100 03/03/22 09:59 101 H 100 03/03/22 09:54 102 H 100 03/03/22 09:49 106 H 99 03/03/22 09:47 100 H 172/81 H 03/03/22 09:44 99 H 100 03/03/22 09:39 104 H 100 03/03/22 09:34 99 H 99 03/03/22 09:29 103 H 100 03/03/22 09:24 106 H 100 03/03/22 09:20 20 03/03/22 09:19 105 H 98 03/03/22 09:16 103 H 147/88 H 03/03/22 09:14 106 H 98 03/03/22 09:09 103 H 96 03/03/22 09:07 36.7 C 20 03/03/22 09:04 102 H 96 03/03/22 08:59 102 H 98 03/03/22 08:54 104 H 100 03/03/22 08:32 100 H 151/80 H 03/03/22 08:20 20 03/03/22 08:16 100 H 152/70 H 03/03/22 08:05 97 H 98 03/03/22 08:01 93 H 157/80 H 03/03/22 07:54 98 H 100 03/03/22 07:49 97 H 100 03/03/22 07:46 97 H 140/78 03/03/22 07:44 102 H 100 03/03/22 07:39 101 H 100 03/03/22 07:34 105 H 98 03/03/22 07:29 102 H 100 03/03/22 07:24 101 H 98 03/03/22 07:20 20 03/03/22 07:19 97 H 100 03/03/22 07:16 36.7 C 98 H 20 157/86 H 03/03/22 07:14 99 H 99 03/03/22 07:09 99 H 100 03/03/22 07:04 103 H 99 03/03/22 07:01 98 H 154/85 H 03/03/22 06:59 100 H 99 03/03/22 06:54 99 H 99 03/03/22 06:49 100 H 99 03/03/22 06:46 98 H 160/86 H 03/03/22 06:44 98 H 99 03/03/22 06:39 99 H 99 03/03/22 06:34 98 H 100 03/03/22 06:31 97 H 145/84 H 03/03/22 06:29 98 H 99 03/03/22 06:24 97 H 99 03/03/22 06:19 96 H 99 03/03/22 06:16 96 H 145/82 H 03/03/22 06:14 97 H 100 03/03/22 06:09 98 H 99 03/03/22 06:04 97 H 99 03/03/22 06:01 98 H 18 164/92 H 03/03/22 05:59 96 H 99 03/03/22 05:57 18 03/03/22 05:54 96 H 99 03/03/22 05:49 97 H 99 03/03/22 05:46 97 H 151/93 H 03/03/22 05:44 97 H 99 03/03/22 05:39 98 H 100 03/03/22 05:31 98 H 18 143/87 H 03/03/22 05:16 96 H 156/90 H 03/03/22 05:10 97 H 99 03/03/22 05:05 96 H 99 03/03/22 05:02 18 03/03/22 05:01 96 H 161/90 H 03/03/22 05:00 36.9 C 96 H 99 03/03/22 04:55 95 H 98 03/03/22 04:50 95 H 100 03/03/22 04:47 96 H 171/96 H 03/03/22 04:45 95 H 99 03/03/22 04:40 93 H 98 03/03/22 04:35 93 H 97 03/03/22 04:32 93 H 156/88 H 03/03/22 04:30 94 H 18 95 03/03/22 04:26 92 H 94 03/03/22 04:25 93 H 95 03/03/22 04:21 93 H 94 03/03/22 04:20 93 H 95 03/03/22 04:16 94 H 137/78 94 03/03/22 04:15 94 H 95 03/03/22 04:10 94 H 95 03/03/22 04:05 95 H 95 03/03/22 04:01 95 H 94 03/03/22 04:00 93 H 139/73 95 03/03/22 03:55 92 H 96 03/03/22 03:54 91 H 141/75 H 94 03/03/22 03:50 95 H 94 03/03/22 03:49 96 H 125/71 94 03/03/22 03:45 97 H 93 03/03/22 03:44 99 H 139/81 03/03/22 03:43 101 H 94 03/03/22 03:40 99 H 96 03/03/22 03:39 96 H 159/85 H 03/03/22 03:35 102 H 97 03/03/22 03:33 97 H 174/84 H 03/03/22 03:32 20 03/03/22 03:30 101 H 18 98 03/03/22 03:27 96 H 185/91 H 03/03/22 03:25 97 H 97 Coding Level of Care Code None Diagnoses Preeclampsia O14.90
[2022-03-03] MEDS ORDERED: CITRIC ACID/SODIUM CITRATE 15 ML UDC PO SCH (16:00)
[2022-03-03] MEDS ORDERED: MoRPHine SULFATE PF 1 MG/ML 10 ML AMP/VIAL ONE (16:20)
[2022-03-03] MEDS ORDERED: METOCLOPRAMIDE HCL INJ 5 MG/ML 2 ML VIAL ONE (16:38)
[2022-03-03] MEDS ORDERED: ONDANSETRON INJ 2 MG/ML 2 ML VIAL ONE (16:38)
[2022-03-03] MEDS ORDERED: OXYTOCIN 10 UNITS/ML 10ML VIAL ONE (16:38)
[2022-03-03] MEDS ORDERED: LIDOCAINE 2%/EPINEPHRINE 1:200,000 20 ML SDV ONE (16:38)
[2022-03-03] MEDS ORDERED: NALBUPHINE HCL INJ 10 MG/ML AMP IV PRN (16:47)
[2022-03-03] MEDS ORDERED: NALOXONE HCL 0.4 MG/1 ML VIAL/CARP IV PRN (16:47)
[2022-03-03] MEDS ORDERED: NALOXONE HCL 1 MG in SODIUM CHLORIDE 0.9% 1000ML 1,000 ML IV PRN (16:47)
[2022-03-03] MEDS ORDERED: ePHEDrine sulfate 50 MG/ML AMP IV PRN (16:47)
[2022-03-03] MEDS ORDERED: ONDANSETRON INJ 2 MG/ML 2 ML VIAL IV PRN ×2 (16:47→17:05)
[2022-03-03] MEDS ORDERED: NALOXONE HCL 0.08 MG in SYRINGE 1.8 ML IV PRN (16:47)
[2022-03-03] MEDS ORDERED: PROMETHAZINE HCL 12.5 MG in SODIUM CHLORIDE 0.9% 50 ML IV PRN (16:47)
[2022-03-03] MEDS ORDERED: diphenhydrAMINE 50 MG/ML VIAL IV PRN (16:47)
[2022-03-03] MEDS ORDERED: LACTATED RINGER'S 500 ML IV PRN (16:47)
[2022-03-03] MEDS ORDERED: MoRPHine SULFATE 2 MG/ML CARP IV PRN (16:47)
[2022-03-03] MEDS ORDERED: MoRPHine SULFATE PF 1 MG/ML 10 ML AMP/VIAL EPI ONE (16:47)
[2022-03-03] MEDS ORDERED: DC INTRASPINAL MORPHINE SCH (17:00)
[2022-03-03] MEDS ORDERED: NO NARCOTICS OR SEDATIVES SCH (17:00)
[2022-03-03] MEDS ORDERED: SENNA 8.6 MG TAB PO PRN (17:05)
[2022-03-03] MEDS ORDERED: HYDROCORTISONE ACETATE 25 MG SUPP PR PRN (17:05)
[2022-03-03] MEDS ORDERED: BENZOCAINE 20% AER SPR 82.5 GM CAN EXT PRN (17:05)
[2022-03-03] MEDS ORDERED: DIPHTHERIA/TETANUS/PERTUSSIS 0.5 ML SYR/VIAL IM ONE (17:05)
[2022-03-03] MEDS ORDERED: MAGNESIUM HYDROXIDE SUSP 30 ML UDC PO PRN (17:05)
[2022-03-03] MEDS ORDERED: LACTATED RINGER'S 1,000 ML IV SCH (17:15)
--- NOTE | 2022-03-03 17:16 | Operative Report ---
PG Post Operative Report Pre & Post Diagnosis Operation Date: 03/03/22 16:00 Pre-Op Diagnosis: at 39 Weeks;Severe Preeclampsia;Failure to Progress Post op diagnosis same I identified the patient and participated in the time-out.: Yes Procedure Operation Date: 03/03/22 16:00 <No data on this case meets the specified criteria> primary low transverse to deliver viable male Surgeon Joanna Pugh MD, FACOG Foot Worker Dr. Mccarthy Estimated Blood Loss 700 Findings Consistent with Post-Op Diagnosis viable male in cephalic presentation, wedged into pelvis, apgars 6/8/9. normal appearing uterus, tubes, ovaries. Fluids 1000cc ivf 250 cc oncentrated urine at end of the procedure. Specimens none Drains packer Anesthesia Type L&D Only Epidural Exists Complications none Disposition Accompanied Patient To Recovery: Yes Disposition: L&D Indications [id number] presented for a 39 week elective induction. Patient was admitted and given pitocin, arom. Had a poorly functioning epidural that needed to be dosed frequently. She was found to be 7-8cm at 2am. She was given a small pitocin break and then restarted and increased at 6am. Patient did not progress beyond 8cm throughout the day. Pitocin max of 24 and really did not establish an adequate labor pattern or adequate mvus. at about 12 hours of being 8cm, patient declined further attempts at vaginal delivery and elected to proceed with c/s. Description of Procedure The patient was taken to the operating room where she was identified verbally and by bracelet. She was placed in the supine position with a leftward tilt. A Packer catheter had been placed sterilely. The patient was prepped and draped in a normal standard fashion. the anesthetic was tested and found to be adequate. A time-out was held, identifying correct patient, procedure, positioning and preoperative antibiotics. There were no concerns. A Pfannenstiel skin incision was made with a knife and taken down to the underlying layer of fascia with the knife and Bovie electrocautery. Bleeding was attended to with the Bovie. The fascia was incised in the midline with the knife and taken out laterally with scissors. The superior edge of the fascial incision was grasped, elevated and the underlying layer of rectus muscle was taken off bluntly and with scissors. In a similar fashion, the inferior edge of the fascial incision was grasped, elevated and the underlying layer of rectus muscle was taken off bluntly and with scissors. The muscles were bluntly in the midline. The peritoneum was entered bluntly. The incision was then stretched. The bladder blade was placed. The vesicouterine peritoneum was identified, entered with scissors and taken out laterally with scissors. The bladder flap was created digitally A hysterotomy incision was scored with a knife and the incision was stretched superiorly and inferiorly with the multicut line operator's fingers. The operators hand was placed into the incision and the head was delivered atraumatically. Nuchal cord x 1 , loose. The nose and mouth were bulb suctioned. the rest of the was then delivered without difficulty. The nose and mouth were again bulb suctioned. The cord was clamped and cut and the infant was then handed off to the awaiting belt notcher for drying and attention. Cord blood and segment were obtained. The placenta was Manually extracted. The uterus was exteriorized and cleared of all clot and debris with moistened laparotomy sponges. The hysterotomy incision was repaired in two layers, the first in a running locked layer, the second in an imbricating layer. Hemostasis was noted to be good. Posterior cul-de-sac was irrigated and cleared of all clot and debris. The hysterotomy incision was again inspected and 2 sutures were needed for hemostasis. the uterus was reinteriorized. Hysterotomy incision was again inspected and found to be hemostatic. Shelley placed across the incision and pressure held for three minutes. Hemostasis confirmed. Rectus muscles were reapproximated with several interrupted stitches of 0 Vicryl. The fascia was then reapproximated with 0 Vicryl starting at the edges and meeting in the midline. The subcuticular tissues were copiously irrigated and bleeding was attended to with cautery. The skin was then closed with 4-0 Vicryl in a subcuticular fashion. All sponge lap and needle counts correct x 2. The patient tolerated the procedure well and was taken to recovery in stable condition. I attest to the content of the Intraoperative Record and any orders documented therein. Any exceptions are noted below. OB Procedure Charges 52090
[2022-03-03] MEDS: KETOROLAC 30 MG/ML VIAL IV PRN ×2 (17:19→22:59)
[2022-03-03] MEDS ORDERED: OXYTOCIN 20 UNITS in LACTATED RINGER'S 1,000 ML IV SCH (19:30)
--- NOTE | 2022-03-03 20:45 | Anesthesiology Progress Note ---
Date of Service March 03, 2022 Anesthesia Post Procedure Vital Signs Vital Signs: Temp Pulse Resp BP Pulse Ox 03/03/22 20:40 100 H 100 03/03/22 20:35 101 H 100 03/03/22 20:30 111 H 99 03/03/22 20:25 101 H 93 03/03/22 20:20 101 H 95 03/03/22 20:15 99 H 95 03/03/22 20:14 99 H 127/59 L 03/03/22 20:10 107 H 95 03/03/22 20:05 112 H 97 03/03/22 20:00 111 H 97 03/03/22 19:55 108 H 97 03/03/22 19:50 107 H 98 03/03/22 19:45 107 H 98 03/03/22 19:40 104 H 97 03/03/22 19:35 106 H 98 03/03/22 19:30 113 H 98 03/03/22 19:25 103 H 98 03/03/22 19:20 112 H 97 03/03/22 19:15 105 H 94 03/03/22 19:13 106 H 137/60 89 L 03/03/22 19:10 36.7 C 104 H 20 89 L 03/03/22 19:05 108 H 90 03/03/22 19:00 104 H 87 L 03/03/22 18:58 101 H 121/57 L 03/03/22 18:55 103 H 86 L 03/03/22 18:50 103 H 87 L 03/03/22 18:45 107 H 16 91 03/03/22 18:43 104 H 121/61 03/03/22 18:40 106 H 89 L 03/03/22 18:35 105 H 90 03/03/22 18:34 109 H 93 03/03/22 18:30 110 H 91 03/03/22 18:28 108 H 133/64 03/03/22 18:25 114 H 90 03/03/22 18:20 109 H 85 L 03/03/22 18:15 108 H 84 L 03/03/22 18:12 108 H 129/57 L 03/03/22 18:10 108 H 18 87 L 03/03/22 18:05 109 H 90 03/03/22 18:02 110 H 132/69 03/03/22 18:00 112 H 90 03/03/22 17:55 114 H 89 L 03/03/22 17:52 111 H 124/73 03/03/22 17:50 115 H 89 L 03/03/22 17:45 108 H 88 L 03/03/22 17:42 107 H 156/74 H 03/03/22 17:40 108 H 86 L 03/03/22 17:35 107 H 89 L 03/03/22 17:32 107 H 151/81 H 03/03/22 17:30 107 H 91 03/03/22 17:25 105 H 89 L 03/03/22 17:22 106 H 160/79 H 03/03/22 17:20 106 H 93 03/03/22 17:15 108 H 91 03/03/22 17:11 111 H 156/81 H 03/03/22 17:10 110 H 92 03/03/22 17:06 113 H 122/89 03/03/22 17:05 112 H 93 03/03/22 15:54 112 H 135/74 03/03/22 15:50 105 H 156/80 H 03/03/22 15:24 104 H 189/94 H 03/03/22 14:46 105 H 150/80 H 03/03/22 14:37 101 H 149/78 H 03/03/22 14:26 101 H 151/83 H 03/03/22 14:16 102 H 150/79 H 03/03/22 14:07 101 H 152/76 H 03/03/22 13:54 101 H 164/85 H 03/03/22 13:52 106 H 174/87 H 03/03/22 13:50 100 H 170/88 H 03/03/22 13:48 100 H 166/88 H 03/03/22 13:46 104 H 167/91 H 03/03/22 13:15 37.0 C 102 H 18 144/83 H 03/03/22 12:54 103 H 100 03/03/22 12:49 102 H 99 03/03/22 12:45 107 H 182/92 H 03/03/22 12:44 103 H 100 03/03/22 12:39 100 H 98 03/03/22 12:34 104 H 100 03/03/22 12:29 102 H 97 03/03/22 12:24 103 H 99 03/03/22 12:20 20 03/03/22 12:19 106 H 100 03/03/22 12:15 100 H 143/78 H 03/03/22 12:14 101 H 97 03/03/22 12:09 101 H 96 03/03/22 12:04 99 H 98 03/03/22 11:59 102 H 99 03/03/22 11:54 100 H 99 03/03/22 11:49 101 H 99 03/03/22 11:45 100 H 145/81 H 03/03/22 11:44 100 H 98 03/03/22 11:39 101 H 97 03/03/22 11:34 101 H 100 03/03/22 11:29 105 H 100 03/03/22 11:24 101 H 99 03/03/22 11:20 36.9 C 18 03/03/22 11:19 100 H 98 03/03/22 11:15 100 H 140/80 03/03/22 11:14 101 H 98 03/03/22 11:09 101 H 100 03/03/22 11:04 99 H 97 03/03/22 11:03 36.7 C 20 03/03/22 10:59 99 H 100 03/03/22 10:54 102 H 100 03/03/22 10:49 101 H 100 03/03/22 10:45 106 H 175/82 H 03/03/22 10:44 107 H 98 03/03/22 10:39 101 H 100 03/03/22 10:34 96 H 99 03/03/22 10:29 101 H 100 03/03/22 10:24 98 H 99 03/03/22 10:20 18 03/03/22 10:19 98 H 99 03/03/22 10:15 98 H 173/82 H 03/03/22 10:14 102 H 100 03/03/22 10:09 101 H 100 03/03/22 10:04 100 H 100 03/03/22 09:59 101 H 100 03/03/22 09:54 102 H 100 03/03/22 09:49 106 H 99 03/03/22 09:47 100 H 172/81 H 03/03/22 09:44 99 H 100 03/03/22 09:39 104 H 100 03/03/22 09:34 99 H 99 03/03/22 09:29 103 H 100 03/03/22 09:24 106 H 100 03/03/22 09:20 20 03/03/22 09:19 105 H 98 03/03/22 09:16 103 H 147/88 H 03/03/22 09:14 106 H 98 03/03/22 09:09 103 H 96 03/03/22 09:07 36.7 C 20 03/03/22 09:04 102 H 96 03/03/22 08:59 102 H 98 03/03/22 08:54 104 H 100 03/03/22 08:32 100 H 151/80 H 03/03/22 08:20 20 03/03/22 08:16 100 H 152/70 H 03/03/22 08:05 97 H 98 03/03/22 08:01 93 H 157/80 H 03/03/22 07:54 98 H 100 03/03/22 07:49 97 H 100 03/03/22 07:46 97 H 140/78 03/03/22 07:44 102 H 100 03/03/22 07:39 101 H 100 03/03/22 07:34 105 H 98 03/03/22 07:29 102 H 100 03/03/22 07:24 101 H 98 03/03/22 07:20 20 03/03/22 07:19 97 H 100 03/03/22 07:16 36.7 C 98 H 20 157/86 H 03/03/22 07:14 99 H 99 03/03/22 07:09 99 H 100 03/03/22 07:04 103 H 99 03/03/22 07:01 98 H 154/85 H 03/03/22 06:59 100 H 99 03/03/22 06:54 99 H 99 03/03/22 06:49 100 H 99 03/03/22 06:46 98 H 160/86 H 03/03/22 06:44 98 H 99 03/03/22 06:39 99 H 99 03/03/22 06:34 98 H 100 03/03/22 06:31 97 H 145/84 H 03/03/22 06:29 98 H 99 03/03/22 06:24 97 H 99 03/03/22 06:19 96 H 99 03/03/22 06:16 96 H 145/82 H 03/03/22 06:14 97 H 100 03/03/22 06:09 98 H 99 03/03/22 06:04 97 H 99 03/03/22 06:01 98 H 18 164/92 H 03/03/22 05:59 96 H 99 03/03/22 05:57 18 03/03/22 05:54 96 H 99 03/03/22 05:49 97 H 99 03/03/22 05:46 97 H 151/93 H 03/03/22 05:44 97 H 99 03/03/22 05:39 98 H 100 03/03/22 05:31 98 H 18 143/87 H 03/03/22 05:16 96 H 156/90 H 03/03/22 05:10 97 H 99 03/03/22 05:05 96 H 99 03/03/22 05:02 18 03/03/22 05:01 96 H 161/90 H 03/03/22 05:00 36.9 C 96 H 99 03/03/22 04:55 95 H 98 03/03/22 04:50 95 H 100 03/03/22 04:47 96 H 171/96 H 03/03/22 04:45 95 H 99 03/03/22 04:40 93 H 98 03/03/22 04:35 93 H 97 03/03/22 04:32 93 H 156/88 H 03/03/22 04:30 94 H 18 95 03/03/22 04:26 92 H 94 03/03/22 04:25 93 H 95 03/03/22 04:21 93 H 94 03/03/22 04:20 93 H 95 03/03/22 04:16 94 H 137/78 94 03/03/22 04:15 94 H 95 03/03/22 04:10 94 H 95 03/03/22 04:05 95 H 95 03/03/22 04:01 95 H 94 03/03/22 04:00 93 H 139/73 95 03/03/22 03:55 92 H 96 03/03/22 03:54 91 H 141/75 H 94 03/03/22 03:50 95 H 94 03/03/22 03:49 96 H 125/71 94 03/03/22 03:45 97 H 93 03/03/22 03:44 99 H 139/81 03/03/22 03:43 101 H 94 03/03/22 03:40 99 H 96 03/03/22 03:39 96 H 159/85 H 03/03/22 03:35 102 H 97 03/03/22 03:33 97 H 174/84 H 03/03/22 03:32 20 03/03/22 03:30 101 H 18 98 03/03/22 03:27 96 H 185/91 H 03/03/22 03:25 97 H 97 03/03/22 03:20 101 H 99 03/03/22 03:15 116 H 97 03/03/22 03:14 36.9 C 03/03/22 03:12 107 H 178/124 H 03/03/22 03:10 105 H 98 03/03/22 03:05 101 H 97 03/03/22 03:00 100 H 20 98 03/03/22 02:57 102 H 184/101 H 03/03/22 02:55 102 H 96 03/03/22 02:50 104 H 95 03/03/22 02:48 103 H 94 03/03/22 02:45 101 H 96 03/03/22 02:42 100 H 179/95 H 03/03/22 02:40 100 H 98 03/03/22 02:35 101 H 99 03/03/22 02:34 101 H 94 03/03/22 02:30 103 H 20 98 03/03/22 02:28 100 H 159/94 H 03/03/22 02:27 100 H 94 03/03/22 02:25 100 H 97 03/03/22 02:20 102 H 98 03/03/22 02:17 18 03/03/22 02:16 99 H 93 03/03/22 02:15 101 H 97 03/03/22 02:12 97 H 189/94 H 03/03/22 02:10 96 H 98 03/03/22 02:05 94 H 94 03/03/22 02:00 94 H 97 03/03/22 01:57 95 H 139/81 03/03/22 01:55 95 H 96 03/03/22 01:50 94 H 95 03/03/22 01:45 93 H 96 03/03/22 01:43 91 H 150/78 H 03/03/22 01:40 93 H 95 03/03/22 01:35 96 H 95 03/03/22 01:31 18 03/03/22 01:30 94 H 95 03/03/22 01:28 93 H 136/84 03/03/22 01:25 94 H 96 03/03/22 01:20 101 H 96 03/03/22 01:15 97 H 96 03/03/22 01:12 96 H 127/73 03/03/22 01:10 97 H 96 03/03/22 01:05 94 H 97 03/03/22 01:01 36.9 C 18 03/03/22 01:00 93 H 98 03/03/22 00:58 90 140/82 03/03/22 00:55 92 H 96 03/03/22 00:50 86 98 03/03/22 00:45 91 H 97 03/03/22 00:43 88 149/74 H 03/03/22 00:41 89 94 03/03/22 00:40 89 95 03/03/22 00:35 91 H 99 03/03/22 00:34 89 93 03/03/22 00:30 88 18 99 03/03/22 00:27 92 H 94 03/03/22 00:26 90 143/72 H 03/03/22 00:25 89 100 03/03/22 00:22 91 H 94 03/03/22 00:20 88 100 03/03/22 00:15 89 96 03/03/22 00:13 88 136/68 03/03/22 00:10 91 H 97 03/03/22 00:05 91 H 96 03/03/22 00:01 18 03/03/22 00:00 92 H 99 03/02/22 23:56 88 130/71 03/02/22 23:55 97 H 99 03/02/22 23:50 93 H 100 03/02/22 23:45 92 H 98 03/02/22 23:42 93 H 136/75 03/02/22 23:40 94 H 96 03/02/22 23:35 92 H 96 03/02/22 23:30 93 H 18 96 03/02/22 23:26 89 134/69 03/02/22 23:25 91 H 97 03/02/22 23:20 91 H 96 03/02/22 23:15 91 H 96 03/02/22 23:11 90 138/76 03/02/22 23:10 90 95 03/02/22 23:05 90 95 03/02/22 23:00 36.8 C 91 H 18 95 03/02/22 22:58 90 128/73 03/02/22 22:55 97 H 96 03/02/22 22:50 94 H 96 03/02/22 22:45 101 H 97 03/02/22 22:42 107 H 138/86 03/02/22 22:40 102 H 96 03/02/22 22:35 95 H 96 03/02/22 22:30 96 H 18 95 03/02/22 22:26 98 H 124/68 03/02/22 22:25 95 H 95 03/02/22 22:22 98 H 94 03/02/22 22:20 95 H 95 03/02/22 22:15 97 H 95 03/02/22 22:12 95 H 127/71 03/02/22 22:10 96 H 95 03/02/22 22:05 94 H 95 03/02/22 22:02 88 94 03/02/22 22:00 90 18 95 03/02/22 21:56 96 H 123/71 03/02/22 21:55 94 H 96 03/02/22 21:50 97 H 95 03/02/22 21:45 96 H 96 03/02/22 21:42 95 H 132/73 03/02/22 21:40 96 H 95 03/02/22 21:35 95 H 96 03/02/22 21:30 37.1 C 104 H 18 95 03/02/22 21:25 106 H 126/77 95 03/02/22 21:21 101 H 145/75 H 03/02/22 21:20 101 H 96 03/02/22 21:15 99 H 138/77 96 03/02/22 21:10 102 H 146/81 H 96 03/02/22 21:05 102 H 136/81 97 03/02/22 21:00 98 H 135/91 97 03/02/22 20:55 97 H 97 03/02/22 20:54 95 H 137/84 03/02/22 20:52 96 H 150/90 H 03/02/22 20:50 96 H 18 145/71 H 96 03/02/22 20:48 94 H 141/79 H 03/02/22 20:46 88 148/86 H Pain Intensity Abdomen: Pain Intensity: 0 Transfer of Care Handoff Completed per policy Notes Mental Status: alert / awake / arousable Patient Amnestic to Procedure: Yes Nausea / Vomiting: adequately controlled Pain: adequately controlled Airway Patency, RR, SpO2: stable & adequate BP & HR: stable & adequate Hydration State: stable & adequate Anesthetic Complications: no major complications apparent
[2022-03-03] MEDS: DOCUSATE SODIUM 100 MG CAP PO SCH (21:46)
[2022-03-03] MEDS: SIMETHICONE 80 MG CHEW PO SCH (21:46)
[2022-03-03] MEDS: FAMOTIDINE 20 MG TAB PO SCH (21:53)
[2022-03-03] MEDS ORDERED: Nursing to Pharmacy Communication SCH (23:00)
[2022-03-04] MEDS: LEVOTHYROXINE SODIUM 75 MCG TABLET PO SCH (06:24)
[2022-03-04 06:46] LABS: Basophils # (auto) 0.08 K/uL (0-0.2); Basophils % (auto) 0.5 %; Eosinophils # (auto) 0.04 K/uL (0-0.5); Eosinophils % (auto) 0.3 %; Hematocrit (blood only) 28.4 % (37-47); Hemoglobin 9.5 g/dL (12.0-16.0); Immature Granulocytes # (auto) 0.14 K/uL (0.00-0.02); Immature Granulocytes % (auto) 0.9 %; Lymphocytes % (auto) 10.5 %; Mean Corpuscular Hemoglobin 30.3 pg (25-34); Mean Corpuscular Hgb Conc 33.5 g/dL (32-36); Mean Corpuscular Volume 90.4 fL (80-100); Mean Platelet Volume 9.6 fL (7.4-10.4); Monocytes # (auto) 1.83 K/uL (0.11-0.59); Neutrophils # (auto) 11.57 K/uL (1.4-6.5); Neutrophils % (auto) 75.8 %; Platelet Count 185 K/uL (130-400); RDW Coefficient of Variation 14.3 % (11.5-14.5); RDW Standard Deviation 46.9 fL (36.4-46.3); Red Blood Count 3.14 M/uL (4.2-5.4); White Blood Count 15.26 K/uL (4.8-10.8)
--- NOTE | 2022-03-04 07:09 | Obstetrical Progress Note ---
Date of Service March 04, 2022 Assessment & Plan (1) Preeclampsia: (2) delivery delivered: No s/s of pet, uop improved, bps much improved. Has been on pp mag for 15 hours. Will discuss with incoming physician about coming off at 18 or 24 hours. no s/s of toxicity. Baby at [place] and doing really well. Subjective Ambulation: limited ambulation Voiding: packer catheter in place Diet Tolerance:: clear liquids she is feeling well this am. Denies s/s of pet. UOP finally starting to increase. Has always been adequate, but now >100 for a couple of hours. Pressures are much improved. Only elevated once just after the baby left and talking with her mother. Physical Exam Constitutional WD/WN, vitals as above Cardiovascular Extremities: + edema (tr); no calf tenderness Gastrointestinal (Abdomen) soft, obese, nt. ff/nt at u Neurologic patellar DTR's 2+ bilat, sensation intact Results & Data ([facility]) Vital Signs (Past 12 Hours) Vital Signs Temp Pulse Resp BP Pulse Ox 03/04/22 07:00 104 H 94 03/04/22 06:55 106 H 93 03/04/22 06:50 105 H 93 03/04/22 06:45 104 H 93 03/04/22 06:40 102 H 94 03/04/22 06:35 103 H 96 03/04/22 06:30 100 H 96 03/04/22 06:25 107 H 18 98 03/04/22 06:24 104 H 130/64 03/04/22 06:20 100 H 95 03/04/22 06:15 103 H 99 03/04/22 06:10 103 H 98 03/04/22 06:05 98 H 100 03/04/22 06:00 97 H 96 03/04/22 05:55 94 H 97 03/04/22 05:50 96 H 98 03/04/22 05:45 97 H 100 03/04/22 05:40 98 H 84 L 03/04/22 05:39 98 H 87 L 03/04/22 05:35 98 H 95 03/04/22 05:34 97 H 89 L 03/04/22 05:30 100 H 16 84 L 03/04/22 05:29 97 H 85 L 03/04/22 05:25 97 H 95 03/04/22 05:23 99 H 89 L 03/04/22 05:20 99 H 88 L 03/04/22 05:17 96 H 88 L 03/04/22 05:15 98 H 94 03/04/22 05:14 101 H 115/56 L 03/04/22 05:10 101 H 87 L 03/04/22 05:09 96 H 86 L 03/04/22 05:05 99 H 92 03/04/22 05:03 96 H 85 L 03/04/22 05:00 97 H 97 03/04/22 04:55 96 H 97 03/04/22 04:50 95 H 96 03/04/22 04:45 97 H 97 03/04/22 04:40 95 H 97 03/04/22 04:35 97 H 97 03/04/22 04:30 95 H 97 03/04/22 04:25 93 H 98 03/04/22 04:20 94 H 97 03/04/22 04:15 94 H 16 98 03/04/22 04:14 92 H 132/72 03/04/22 04:10 97 H 96 03/04/22 04:05 94 H 100 03/04/22 04:00 96 H 86 L 03/04/22 03:55 95 H 80 L 03/04/22 03:50 92 H 98 03/04/22 03:45 92 H 96 03/04/22 03:40 92 H 98 03/04/22 03:35 94 H 99 03/04/22 03:30 100 H 97 03/04/22 03:25 109 H 96 03/04/22 03:20 36.9 C 86 16 98 03/04/22 03:15 89 96 03/04/22 03:14 88 115/59 L 03/04/22 03:10 89 96 03/04/22 03:05 90 96 03/04/22 03:00 89 96 03/04/22 02:55 89 96 03/04/22 02:50 89 95 03/04/22 02:45 89 96 03/04/22 02:40 89 96 03/04/22 02:35 90 96 03/04/22 02:30 89 96 03/04/22 02:25 89 97 03/04/22 02:20 89 16 97 03/04/22 02:15 89 97 03/04/22 02:14 88 127/62 03/04/22 02:10 90 98 03/04/22 02:05 91 H 98 03/04/22 02:00 92 H 99 03/04/22 01:57 88 85 L 03/04/22 01:55 91 H 97 03/04/22 01:51 92 H 89 L 03/04/22 01:50 93 H 98 03/04/22 01:45 94 H 93 03/04/22 01:44 89 84 L 03/04/22 01:40 94 H 84 L 03/04/22 01:37 94 H 86 L 03/04/22 01:35 95 H 78 L 03/04/22 01:30 93 H 86 L 03/04/22 01:25 94 H 80 L 03/04/22 01:20 94 H 84 L 03/04/22 01:19 96 H 89 L 03/04/22 01:15 98 H 89 L 03/04/22 01:14 97 H 129/57 L 88 L 03/04/22 01:10 98 H 82 L 03/04/22 01:09 95 H 86 L 03/04/22 01:07 16 03/04/22 01:05 96 H 94 03/04/22 01:00 96 H 94 03/04/22 00:55 97 H 94 03/04/22 00:50 97 H 94 03/04/22 00:45 98 H 94 03/04/22 00:40 100 H 93 03/04/22 00:35 99 H 94 03/04/22 00:30 99 H 92 03/04/22 00:25 102 H 96 03/04/22 00:20 103 H 95 03/04/22 00:15 100 H 95 03/04/22 00:14 106 H 121/65 03/04/22 00:10 102 H 96 03/04/22 00:06 18 03/04/22 00:05 107 H 96 03/04/22 00:00 106 H 97 03/03/22 23:55 105 H 95 03/03/22 23:50 106 H 97 03/03/22 23:45 109 H 97 03/03/22 23:40 109 H 99 03/03/22 23:35 109 H 99 03/03/22 23:30 101 H 100 03/03/22 23:25 105 H 99 03/03/22 23:20 101 H 100 03/03/22 23:15 100 H 100 03/03/22 23:14 100 H 123/70 03/03/22 23:10 103 H 100 03/03/22 23:05 102 H 99 03/03/22 23:00 36.8 C 100 H 16 100 03/03/22 22:55 105 H 100 03/03/22 22:50 102 H 98 03/03/22 22:45 103 H 99 03/03/22 22:40 101 H 100 03/03/22 22:37 16 03/03/22 22:35 103 H 100 03/03/22 22:30 106 H 100 03/03/22 22:25 106 H 100 03/03/22 22:20 104 H 100 03/03/22 22:17 106 H 162/78 H 03/03/22 22:15 108 H 100 03/03/22 22:14 109 H 175/76 H 03/03/22 22:10 106 H 100 03/03/22 22:05 107 H 100 03/03/22 22:00 109 H 100 03/03/22 21:55 110 H 100 03/03/22 21:50 106 H 100 03/03/22 21:45 109 H 100 03/03/22 21:40 117 H 100 03/03/22 21:35 103 H 100 03/03/22 21:30 100 H 20 99 03/03/22 21:25 101 H 100 03/03/22 21:20 102 H 100 03/03/22 21:15 100 H 99 03/03/22 21:14 100 H 143/69 H 03/03/22 21:10 103 H 100 03/03/22 21:05 100 H 100 03/03/22 21:00 101 H 100 03/03/22 20:55 98 H 100 03/03/22 20:50 101 H 99 03/03/22 20:45 100 H 100 03/03/22 20:40 100 H 100 03/03/22 20:35 101 H 100 03/03/22 20:30 111 H 99 03/03/22 20:25 101 H 93 03/03/22 20:20 101 H 95 03/03/22 20:15 99 H 18 95 03/03/22 20:14 99 H 127/59 L 03/03/22 20:10 107 H 95 03/03/22 20:05 112 H 97 03/03/22 20:00 111 H 97 03/03/22 19:55 108 H 97 03/03/22 19:50 107 H 98 03/03/22 19:45 107 H 98 03/03/22 19:40 104 H 97 03/03/22 19:35 106 H 98 03/03/22 19:30 113 H 98 03/03/22 19:25 103 H 98 03/03/22 19:20 112 H 97 03/03/22 19:15 105 H 94 03/03/22 19:13 106 H 137/60 89 L 03/03/22 19:10 36.7 C 104 H 20 89 L
[2022-03-04] MEDS: DOCUSATE SODIUM 100 MG CAP PO SCH ×2 (07:49→19:36)
[2022-03-04] MEDS: SIMETHICONE 80 MG CHEW PO SCH ×4 (07:50→21:11)
[2022-03-04] MEDS: PRENATAL VITAMIN 1 TAB PO SCH (07:50)
[2022-03-04] MEDS: FERROUS SULFATE 325 MG TAB PO SCH (07:50)
--- NOTE | 2022-03-04 08:13 | Obstetrical Progress Note ---
Date of Service March 04, 2022 Assessment & Plan (1) Postcesarean section: Plan: 41yo POD 1 s/p LTCS at 39 weeks. LTCS 2/2 arrest of labor. Complicated by PET on mag. -Continue routine care -Vitals reviewed- HDS, afebrile -GBS positive adequately tx -Encourage ambulation, advance diet -remove packer if urine output adequate, voiding trial -remove bandages over incision site this afternoon -d/c mag later today, monitor BPs -Pain control with ibuprofen, acetaminophen, oxy PRN -Encourage -Hgb 9.5, cont. to monitor -f/u in 6 weeks with OB after discharge (2) Preeclampsia: (3) GBS (group B streptococcus) infection: Admission and Anticipated Discharge Date Admission Date: March 02, 2022 Supervising Physician Co-Signing Physician Notes Resident Physician Supervision Note: I interviewed and examined the patient. Discussed with Dr. vann and agree with findings and plan as documented in the note. Any exceptions or clarifications are listed here: see my note. [email or web address] Documented By: Joanna Pugh MD, FACOG Subjective Ambulation: no Voiding: no, packer in place Passing Gas: no BM: no Diet Tolerance: clear liquids Lochia: small Feeding Type: Current Pain Level(1-10): 0 Review of Systems Review of Systems: Denies fevers/chills. Denies dyspnea, cough. Denies chest pain. Denies dysuria. Denies headache. Denies back pain. Physical Exam Physical Exam: General: Alert, oriented, no acute distress Cardiac: Regular rate and rhythm, normal S1, S2. No murmurs appreciated. Respiratory: Clear to auscultation b/l with good air flow entry, symmetric chest rise and fall. No wheezes or crackles. No increased work of breathing or accessory muscle use Abdomen: Soft, mild diffuse tenderness, nondistended. Fundus firm and palpable at 1 cm below umbilicus. Bandages over incision site. Bowel sounds appreciated. No guarding or rebound. Skin: No abdominal rashes or lesions Extremities: Warm, dry, well-perfused with capillary refill <2s b/l. No lower extremity edema, erythema or swelling. Negative Matias's sign b/l. Results & Data ([facility]) Vital Signs (Past 12 Hours) Vital Signs Temp Pulse Resp BP Pulse Ox 06/09/22 08:05 111 H 99 03/04/22 08:00 109 H 98 03/04/22 07:55 108 H 96 03/04/22 07:50 105 H 95 03/04/22 07:45 105 H 92 03/04/22 07:40 110 H 96 03/04/22 07:35 107 H 94 03/04/22 07:30 108 H 96 03/04/22 07:25 106 H 93 03/04/22 07:20 106 H 94 03/04/22 07:15 108 H 96 03/04/22 07:14 111 H 137/61 03/04/22 07:10 107 H 95 03/04/22 07:05 109 H 96 03/04/22 07:00 104 H 94 03/04/22 06:55 106 H 93 03/04/22 06:50 105 H 93 03/04/22 06:45 104 H 93 03/04/22 06:40 102 H 94 03/04/22 06:35 103 H 96 03/04/22 06:30 100 H 96 03/04/22 06:25 107 H 18 98 03/04/22 06:24 104 H 130/64 03/04/22 06:20 100 H 95 03/04/22 06:15 103 H 99 03/04/22 06:10 103 H 98 03/04/22 06:05 98 H 100 03/04/22 06:00 97 H 96 03/04/22 05:55 94 H 97 03/04/22 05:50 96 H 98 03/04/22 05:45 97 H 100 03/04/22 05:40 98 H 84 L 03/04/22 05:39 98 H 87 L 03/04/22 05:35 98 H 95 03/04/22 05:34 97 H 89 L 03/04/22 05:30 100 H 16 84 L 03/04/22 05:29 97 H 85 L 03/04/22 05:25 97 H 95 03/04/22 05:23 99 H 89 L 03/04/22 05:20 99 H 88 L 03/04/22 05:17 96 H 88 L 03/04/22 05:15 98 H 94 03/04/22 05:14 101 H 115/56 L 03/04/22 05:10 101 H 87 L 03/04/22 05:09 96 H 86 L 03/04/22 05:05 99 H 92 03/04/22 05:03 96 H 85 L 03/04/22 05:00 97 H 97 03/04/22 04:55 96 H 97 03/04/22 04:50 95 H 96 03/04/22 04:45 97 H 97 03/04/22 04:40 95 H 97 03/04/22 04:35 97 H 97 03/04/22 04:30 95 H 97 03/04/22 04:25 93 H 98 03/04/22 04:20 94 H 97 03/04/22 04:15 94 H 16 98 03/04/22 04:14 92 H 132/72 03/04/22 04:10 97 H 96 03/04/22 04:05 94 H 100 03/04/22 04:00 96 H 86 L 03/04/22 03:55 95 H 80 L 03/04/22 03:50 92 H 98 03/04/22 03:45 92 H 96 03/04/22 03:40 92 H 98 03/04/22 03:35 94 H 99 03/04/22 03:30 100 H 97 03/04/22 03:25 109 H 96 03/04/22 03:20 36.9 C 86 16 98 03/04/22 03:15 89 96 03/04/22 03:14 88 115/59 L 03/04/22 03:10 89 96 03/04/22 03:05 90 96 03/04/22 03:00 89 96 03/04/22 02:55 89 96 03/04/22 02:50 89 95 03/04/22 02:45 89 96 03/04/22 02:40 89 96 03/04/22 02:35 90 96 03/04/22 02:30 89 96 03/04/22 02:25 89 97 03/04/22 02:20 89 16 97 03/04/22 02:15 89 97 03/04/22 02:14 88 127/62 03/04/22 02:10 90 98 03/04/22 02:05 91 H 98 03/04/22 02:00 92 H 99 03/04/22 01:57 88 85 L 03/04/22 01:55 91 H 97 03/04/22 01:51 92 H 89 L 03/04/22 01:50 93 H 98 03/04/22 01:45 94 H 93 03/04/22 01:44 89 84 L 03/04/22 01:40 94 H 84 L 03/04/22 01:37 94 H 86 L 03/04/22 01:35 95 H 78 L 03/04/22 01:30 93 H 86 L 03/04/22 01:25 94 H 80 L 03/04/22 01:20 94 H 84 L 03/04/22 01:19 96 H 89 L 03/04/22 01:15 98 H 89 L 03/04/22 01:14 97 H 129/57 L 88 L 03/04/22 01:10 98 H 82 L 03/04/22 01:09 95 H 86 L 03/04/22 01:07 16 03/04/22 01:05 96 H 94 03/04/22 01:00 96 H 94 03/04/22 00:55 97 H 94 03/04/22 00:50 97 H 94 03/04/22 00:45 98 H 94 03/04/22 00:40 100 H 93 03/04/22 00:35 99 H 94 03/04/22 00:30 99 H 92 03/04/22 00:25 102 H 96 03/04/22 00:20 103 H 95 03/04/22 00:15 100 H 95 03/04/22 00:14 106 H 121/65 03/04/22 00:10 102 H 96 03/04/22 00:06 18 03/04/22 00:05 107 H 96 03/04/22 00:00 106 H 97 03/03/22 23:55 105 H 95 03/03/22 23:50 106 H 97 03/03/22 23:45 109 H 97 03/03/22 23:40 109 H 99 03/03/22 23:35 109 H 99 03/03/22 23:30 101 H 100 03/03/22 23:25 105 H 99 03/03/22 23:20 101 H 100 03/03/22 23:15 100 H 100 03/03/22 23:14 100 H 123/70 03/03/22 23:10 103 H 100 03/03/22 23:05 102 H 99 03/03/22 23:00 36.8 C 100 H 16 100 03/03/22 22:55 105 H 100 03/03/22 22:50 102 H 98 03/03/22 22:45 103 H 99 03/03/22 22:40 101 H 100 03/03/22 22:37 16 03/03/22 22:35 103 H 100 03/03/22 22:30 106 H 100 03/03/22 22:25 106 H 100 03/03/22 22:20 104 H 100 03/03/22 22:17 106 H 162/78 H 03/03/22 22:15 108 H 100 03/03/22 22:14 109 H 175/76 H 03/03/22 22:10 106 H 100 03/03/22 22:05 107 H 100 03/03/22 22:00 109 H 100 03/03/22 21:55 110 H 100 03/03/22 21:50 106 H 100 03/03/22 21:45 109 H 100 03/03/22 21:40 117 H 100 03/03/22 21:35 103 H 100 03/03/22 21:30 100 H 20 99 03/03/22 21:25 101 H 100 03/03/22 21:20 102 H 100 03/03/22 21:15 100 H 99 03/03/22 21:14 100 H 143/69 H 03/03/22 21:10 103 H 100 03/03/22 21:05 100 H 100 03/03/22 21:00 101 H 100 03/03/22 20:55 98 H 100 03/03/22 20:50 101 H 99 03/03/22 20:45 100 H 100 03/03/22 20:40 100 H 100 03/03/22 20:35 101 H 100 03/03/22 20:30 111 H 99 03/03/22 20:25 101 H 93 03/03/22 20:20 101 H 95 03/03/22 20:15 99 H 18 95 03/03/22 20:14 99 H 127/59 L 03/03/22 20:10 107 H 95 Resident Activity Tracking Resident Involvement: Resident Care Provided Care Provided: OB Delivery
[2022-03-04] MEDS: buPROPion XL 300 MG TABCR PO SCH (09:09)
[2022-03-04] MEDS: FAMOTIDINE 20 MG TAB PO SCH ×2 (09:09→21:10)
[2022-03-04] MEDS ORDERED: PROMETHAZINE HCL 25 MG in SODIUM CHLORIDE 0.9% 50 ML IV PRN (10:49)
[2022-03-04] MEDS ORDERED: MEPERIDINE HCL 50 MG/ML CARP IV PRN (10:49)
[2022-03-04] MEDS ORDERED: KETOROLAC 30 MG/ML VIAL IV PRN (10:49)
[2022-03-04] MEDS ORDERED: diphenhydrAMINE Capsule 25 MG CAP PO PRN (10:49)
[2022-03-04] MEDS ORDERED: diphenhydrAMINE 50 MG/ML VIAL IV PRN (10:49)
[2022-03-04] MEDS ORDERED: Nursing to Pharmacy Communication SCH ×2 (11:15→16:15)
--- NOTE | 2022-03-04 15:47 | Obstetrical Progress Note ---
Date of Service March 04, 2022 Assessment & Plan (1) Preeclampsia: (2) delivery delivered: (3) Supervision of elderly primigravida: Plan: pt diuresing well. bps as noted. ready to dc magnesium and packer, allow regular food. ok to transfer to floor. Admission and Anticipated Discharge Date Admission Date: March 02, 2022 Subjective pt feels well, denies frank, visual change. baby doing well in NICU. excellent urine output noted. she is gloria clears, no solid food yet Review of Systems Constitutional: as per Subjective / HPI Physical Exam Constitutional: WD/WN, vitals as above Psychiatric: A+Ox3, euthymic affect Results & Data ([facility]) Vital Signs (Past 12 Hours) Vital Signs Temp Pulse Resp BP Pulse Ox 03/04/22 15:40 98 H 97 03/04/22 15:35 95 H 94 03/04/22 15:30 94 H 94 03/04/22 15:25 96 H 97 03/04/22 15:20 99 H 97 03/04/22 15:15 97 H 96 03/04/22 15:14 99 H 119/58 L 03/04/22 15:10 98 H 97 03/04/22 15:05 98 H 97 03/04/22 15:00 99 H 99 03/04/22 14:55 98 H 99 03/04/22 14:50 98 H 98 03/04/22 14:45 101 H 98 03/04/22 14:40 96 H 97 03/04/22 14:35 96 H 98 03/04/22 14:30 99 H 97 03/04/22 14:25 101 H 97 03/04/22 14:20 98 H 98 03/04/22 14:15 102 H 98 03/04/22 14:14 101 H 118/66 03/04/22 14:10 103 H 97 03/04/22 14:05 104 H 97 03/04/22 14:00 105 H 20 97 03/04/22 13:55 106 H 98 03/04/22 13:50 102 H 100 03/04/22 13:45 105 H 100 03/04/22 13:40 105 H 100 03/04/22 13:35 109 H 99 03/04/22 13:30 106 H 100 03/04/22 13:25 112 H 100 03/04/22 13:20 111 H 100 03/04/22 13:15 109 H 100 03/04/22 13:14 109 H 119/60 03/04/22 13:10 106 H 99 03/04/22 13:05 108 H 100 03/04/22 13:00 108 H 16 100 03/04/22 12:55 106 H 99 03/04/22 12:50 106 H 100 03/04/22 12:45 109 H 100 03/04/22 12:40 107 H 99 03/04/22 12:35 110 H 99 03/04/22 12:30 108 H 99 03/04/22 12:25 112 H 99 03/04/22 12:20 109 H 99 03/04/22 12:15 111 H 99 03/04/22 12:14 101 H 130/64 03/04/22 12:10 116 H 97 03/04/22 12:05 104 H 94 03/04/22 12:00 98.6 F 105 H 16 98 03/04/22 11:55 104 H 95 03/04/22 11:50 106 H 94 03/04/22 11:45 107 H 96 03/04/22 11:40 103 H 95 03/04/22 11:35 104 H 95 03/04/22 11:30 104 H 95 03/04/22 11:29 102 H 88 L 03/04/22 11:25 105 H 97 03/04/22 11:24 101 H 88 L 03/04/22 11:20 103 H 20 95 03/04/22 11:17 101 H 85 L 03/04/22 11:15 102 H 96 03/04/22 11:14 104 H 136/61 03/04/22 11:10 101 H 96 03/04/22 11:05 105 H 97 03/04/22 11:00 105 H 18 94 03/04/22 10:55 101 H 84 L 03/04/22 10:54 102 H 88 L 03/04/22 10:50 105 H 95 03/04/22 10:48 103 H 89 L 03/04/22 10:45 105 H 90 03/04/22 10:43 105 H 88 L 03/04/22 10:40 104 H 91 03/04/22 10:35 106 H 88 L 03/04/22 10:34 102 H 85 L 03/04/22 10:30 106 H 87 L 03/04/22 10:28 100 H 85 L 03/04/22 10:25 110 H 95 03/04/22 10:22 100 H 86 L 03/04/22 10:20 107 H 18 94 03/04/22 10:15 108 H 96 03/04/22 10:14 108 H 126/59 L 03/04/22 10:10 109 H 97 03/04/22 10:05 107 H 95 03/04/22 10:00 110 H 18 96 03/04/22 09:55 108 H 97 03/04/22 09:50 106 H 98 03/04/22 09:45 109 H 99 03/04/22 09:40 106 H 100 03/04/22 09:35 110 H 100 03/04/22 09:30 112 H 100 03/04/22 09:25 108 H 100 03/04/22 09:20 105 H 18 100 03/04/22 09:15 106 H 100 03/04/22 09:14 107 H 142/65 H 03/04/22 09:10 109 H 100 03/04/22 09:05 108 H 100 03/04/22 09:00 108 H 18 100 03/04/22 08:55 107 H 100 03/04/22 08:50 105 H 99 03/04/22 08:45 109 H 100 03/04/22 08:40 105 H 100 03/04/22 08:35 105 H 100 03/04/22 08:30 106 H 100 03/04/22 08:25 111 H 99 03/04/22 08:20 108 H 20 100 03/04/22 08:15 109 H 100 03/04/22 08:14 105 H 130/62 03/04/22 08:10 108 H 98 03/04/22 08:05 111 H 99 03/04/22 08:00 98.6 F 109 H 20 98 03/04/22 07:55 108 H 96 03/04/22 07:50 105 H 95 03/04/22 07:45 105 H 92 03/04/22 07:40 110 H 96 03/04/22 07:35 107 H 94 03/04/22 07:30 108 H 96 03/04/22 07:25 106 H 93 03/04/22 07:20 106 H 20 94 03/04/22 07:15 108 H 96 03/04/22 07:14 111 H 137/61 03/04/22 07:10 107 H 95 03/04/22 07:05 109 H 96 03/04/22 07:00 104 H 94 03/04/22 06:55 106 H 93 03/04/22 06:50 105 H 93 03/04/22 06:45 104 H 93 03/04/22 06:40 102 H 94 03/04/22 06:35 103 H 96 03/04/22 06:30 100 H 96 03/04/22 06:25 107 H 18 98 03/04/22 06:24 104 H 130/64 03/04/22 06:20 100 H 95 03/04/22 06:15 103 H 99 03/04/22 06:10 103 H 98 03/04/22 06:05 98 H 100 03/04/22 06:00 97 H 96 03/04/22 05:55 94 H 97 03/04/22 05:50 96 H 98 03/04/22 05:45 97 H 100 03/04/22 05:40 98 H 84 L 03/04/22 05:39 98 H 87 L 03/04/22 05:35 98 H 95 03/04/22 05:34 97 H 89 L 03/04/22 05:30 100 H 16 84 L 03/04/22 05:29 97 H 85 L 03/04/22 05:25 97 H 95 03/04/22 05:23 99 H 89 L 03/04/22 05:20 99 H 88 L 03/04/22 05:17 96 H 88 L 03/04/22 05:15 98 H 94 03/04/22 05:14 101 H 115/56 L 03/04/22 05:10 101 H 87 L 03/04/22 05:09 96 H 86 L 03/04/22 05:05 99 H 92 03/04/22 05:03 96 H 85 L 03/04/22 05:00 97 H 97 03/04/22 04:55 96 H 97 03/04/22 04:50 95 H 96 03/04/22 04:45 97 H 97 03/04/22 04:40 95 H 97 03/04/22 04:35 97 H 97 03/04/22 04:30 95 H 97 03/04/22 04:25 93 H 98 03/04/22 04:20 94 H 97 03/04/22 04:15 94 H 16 98 03/04/22 04:14 92 H 132/72 03/04/22 04:10 97 H 96 03/04/22 04:05 94 H 100 03/04/22 04:00 96 H 86 L 03/04/22 03:55 95 H 80 L 03/04/22 03:50 92 H 98 PG Care Time/CCT Total # of Minutes Spent Total Time Spent with Patient: Total time spent is greater than 50% in coordination of care (as documented) at patient's floor/unit and/or counseling patient: Coding Level of Care Code None Diagnoses Preeclampsia O14.90 delivery delivered O82 Supervision of elderly primigravida O09.519
[2022-03-04] MEDS: oxyCODONE/ACETAMINOPHEN 5mg/325mg TAB PO PRN (19:36)
[2022-03-04] MEDS: IBUPROFEN 600 MG TAB PO PRN (19:37)
[2022-03-04] MEDS ORDERED: bisacodyL 5 MG TABEC PO SCH (20:00)
[2022-03-05] MEDS: oxyCODONE/ACETAMINOPHEN 5mg/325mg TAB PO PRN ×4 (00:22→23:45)
[2022-03-05] MEDS: IBUPROFEN 600 MG TAB PO PRN ×4 (00:23→23:46)
[2022-03-05] MEDS: LEVOTHYROXINE SODIUM 75 MCG TABLET PO SCH (06:23)
[2022-03-05 06:44] LABS: Hematocrit (blood only) 26.6 % (37-47); Hemoglobin 8.7 g/dL (12.0-16.0)
--- NOTE | 2022-03-05 07:28 | Obstetrical Progress Note ---
Date of Service March 05, 2022 Assessment & Plan (1) Postcesarean section: Plan: 41yo POD 2 s/p LTCS at 39 weeks. LTCS 2/2 arrest of labor. Complicated by PET. -Continue routine care -Vitals reviewed- HDS, afebrile -GBS positive adequately tx -Encourage ambulation, regular diet -voiding with good urine output -mag d/c'd (03/05), cont. monitor BPs -Pain control with ibuprofen, acetaminophen, oxy PRN -Encourage -Hgb 9.5 --> 8.7 (03/05), stable -f/u in 6 weeks with OB after discharge (2) Preeclampsia: (3) GBS (group B streptococcus) infection: Admission and Anticipated Discharge Date Admission Date: March 02, 2022 Supervising Physician Co-Signing Physician Notes Resident Physician Supervision Note: I was present with Dr. Arroyo during the history and exam. I discussed the case with the resident and agree with the findings and plan as documented in the note. Any exceptions or clarifications are listed here: stable, bps are good. ok to dc home after breakfast if doing well. pain well controlled on oral meds, dc instructions reviewed. f/u 6wk pp check. ff 2 down, nt, incision c/d/i with steris. ext trace edema, nt calves. script sent after checking pa pdmp and no issues identified. Documented By: Julieta Mccarthy MD, FACOG Subjective Ambulation: no Voiding: yes, good urine output Passing Gas: yes BM: yes Diet Tolerance: regular, denies N/V Lochia: small Feeding Type: Current Pain Level(1-10): 5 when getting out of bed this morning Review of Systems Review of Systems: Denies fevers/chills. Denies dyspnea, cough. Denies chest pain. Denies dysuria. Denies headache. Denies back pain. Physical Exam Physical Exam: General: Alert, oriented, no acute distress Cardiac: Regular rate and rhythm, normal S1, S2. No murmurs appreciated. Respiratory: Clear to auscultation b/l with good air flow entry, symmetric chest rise and fall. No wheezes or crackles. No increased work of breathing or accessory muscle use Abdomen: Soft, mild diffuse tenderness, nondistended. Fundus firm and palpable at 2 cm below umbilicus. Surgical incision clean, dry and intact without erythema, warmth or drainage; steri strips intact. Bowel sounds appreciated. No guarding or rebound. Skin: No abdominal rashes or lesions Extremities: Warm, dry, well-perfused with capillary refill <2s b/l. No lower extremity edema, erythema or swelling. Negative Matias's sign b/l. Results & Data ([facility]) Vital Signs (Past 12 Hours) Vital Signs Temp Pulse Resp BP Pulse Ox 03/05/22 04:14 36.4 C L 77 18 127/82 98 03/05/22 00:08 36.4 C L 84 16 130/80 97 Resident Activity Tracking Resident Involvement: Resident Care Provided Care Provided: OB Delivery
[2022-03-05] MEDS: PRENATAL VITAMIN 1 TAB PO SCH (07:43)
[2022-03-05] MEDS: DOCUSATE SODIUM 100 MG CAP PO SCH ×2 (07:43→20:41)
[2022-03-05] MEDS: FERROUS SULFATE 325 MG TAB PO SCH (07:43)
[2022-03-05] MEDS: buPROPion XL 300 MG TABCR PO SCH (07:44)
[2022-03-05] MEDS: SIMETHICONE 80 MG CHEW PO SCH ×4 (07:44→20:41)
[2022-03-05] MEDS: FAMOTIDINE 20 MG TAB PO SCH ×2 (07:44→20:41)
--- NOTE | 2022-03-05 13:58 | Communication Note ---
Date of Service: March 05, 2022 Patient requesting discharge; wants to join who is at [place] for NICU care. Unfortunately, review of chart shows that BP since this morning has been elevated. These pressures were not yet charted in the EMR when I received signout on her course of care earlier today, but have now been added - so although the patient appeared to be doing well w/r/t BP earlier, it is now evident that she likely needs oral antihypertensive therapy before she can go home. Will start her on 200mg PO labetalol. Although this is going to be BID dosing, can try to expedite her discharge by giving dose #1 immediately and trending BP hourly through this afternoon. If we see appropriate response can try for D/C this evening to get her to her 's bedside, knowing she will be in a medical setting where she could request help quickly if she were to feel unwell. If BP does not respond appropriately may need to stay inpatient until appropriate PO regimen can be determined.
[2022-03-05] MEDS: LABETALOL HCL 200 MG TAB PO SCH ×2 (14:29→20:41)
[2022-03-05] MEDS ORDERED: bisacodyL 10 MG SUPP PR PRN (17:05)
--- NOTE | 2022-03-05 20:24 | Communication Note ---
Date of Service: March 05, 2022 Spoke with patient's nurse. BP hourly checks have been showing improvement, no further severe-range pressures, and if patient wanted to leave at this point I could accept that with outpatient follow up. However, nurse reports that patient decided to stay overnight so that she could avoid the stress of not knowing what her plan was. I would certainly prefer to have monitoring opportunity for closer to 24 hours on this new med, so will reassess with possible d/c in AM.
[2022-03-06] MEDS: LEVOTHYROXINE SODIUM 75 MCG TABLET PO SCH (06:30)
[2022-03-06 07:27] LABS: Hematocrit (blood only) 28.1 % (37-47); Hemoglobin 8.6 g/dL (12.0-16.0)
[2022-03-06] MEDS: FERROUS SULFATE 325 MG TAB PO SCH (08:14)
[2022-03-06] MEDS: DOCUSATE SODIUM 100 MG CAP PO SCH (08:14)
[2022-03-06] MEDS: PRENATAL VITAMIN 1 TAB PO SCH (08:15)
[2022-03-06] MEDS: IBUPROFEN 600 MG TAB PO PRN (08:15)
[2022-03-06] MEDS: SIMETHICONE 80 MG CHEW PO SCH (08:15)
[2022-03-06] MEDS: oxyCODONE/ACETAMINOPHEN 5mg/325mg TAB PO PRN (08:15)
[2022-03-06] MEDS: FAMOTIDINE 20 MG TAB PO SCH (08:16)
[2022-03-06] MEDS: buPROPion XL 300 MG TABCR PO SCH (08:16)
[2022-03-06] MEDS: LABETALOL HCL 200 MG TAB PO SCH (08:16)
--- NOTE | 2022-03-06 08:17 | Obstetrical Progress Note ---
Date of Service March 06, 2022 Assessment & Plan (1) Postcesarean section: Plan: 41yo POD 3 s/p LTCS at 39 weeks. LTCS 2/2 arrest of labor. Complicated by preeclampsia with severe features. -Continue routine care -Vitals reviewed- afebrile -GBS positive adequately tx -Encourage ambulation, regular diet -Pain control with ibuprofen, acetaminophen, oxy PRN -Encourage -Hgb 8.6, stable (2) Preeclampsia: Plan: -s/p Mag -BPs fluctuate and mildly elevated but appropriate for discharge on oral meds, pt asymptomatic -continue labetalol 200mg PO BID -f/u OB clinic 1 wk for BP check (3) GBS (group B streptococcus) infection: Admission and Anticipated Discharge Date Admission Date: March 02, 2022 Supervising Physician Co-Signing Physician Notes Resident Physician Supervision Note: I interviewed and examined the patient. Discussed with Dr. Arroyo and agree with findings and plan as documented in the note. Any exceptions or clarifications are listed here: [ ] Documented By: Shruthi Diallo MD, FACOG Subjective Ambulation: yes Voiding: yes Passing Gas: yes BM: yes Diet Tolerance: regular, denies N/V Lochia: small Feeding Type: Current Pain Level(1-10): 0 Review of Systems Review of Systems: Denies fevers/chills. Denies dyspnea, cough. Denies chest pain. Denies dysuria. Denies headache. Denies back pain. Physical Exam Physical Exam: General: Alert, oriented, no acute distress Cardiac: Regular rate and rhythm, normal S1, S2. No murmurs appreciated. Respiratory: Clear to auscultation b/l with good air flow entry, symmetric chest rise and fall. No wheezes or crackles. No increased work of breathing or accessory muscle use Abdomen: Soft, mild diffuse tenderness, nondistended. Fundus firm and palpable at 2 cm below umbilicus. Surgical incision clean, dry and intact without erythema, warmth or drainage; steri strips intact. Bowel sounds appreciated. No guarding or rebound. Skin: stable hemangiomas Extremities: Warm, dry, well-perfused with capillary refill <2s b/l. No lower extremity edema, erythema or swelling. Negative Matias's sign b/l. Results & Data ([facility]) Vital Signs (Past 12 Hours) Vital Signs Temp Pulse Resp BP Pulse Ox 03/06/22 03:50 36.6 C 95 H 17 143/80 H 96 03/05/22 23:50 36.9 C 98 H 16 117/76 94 Resident Activity Tracking Resident Involvement: Resident Care Provided Care Provided: OB Delivery
--- NOTE | 2022-03-10 08:48 | Discharge Summary (DS) ---
DATE OF ADMISSION: 03/01/2022 DATE OF DISCHARGE: 03/06/2022 ADMIT DIAGNOSES: 1. at 40 and 0/7 weeks for elective induction. 2. Obesity. 3. Advanced maternal age. 4. GBS positive. DISCHARGE DIAGNOSES: 1. at 40 and 0/7 weeks for elective induction. 2. Obesity. 3. Advanced maternal age. 4. GBS positive. 5. Failure to progress. 6. Severe preeclampsia. PROCEDURES: Pitocin augmentation, epidural anesthesia, primary low transverse section, magn esium sulfate prophylaxis. HISTORY: The patient is a 41-year-old 1 at 40 weeks gestational age, who presents essentiall y for elective induction. She notes good movement. Denies contractions, leakage of fluid and vaginal bleeding. Her has been complicated by advanced maternal age of greater than 40, hy pothyroidism and a carrier of group B strep. This is her first . She has a history of LEEP in 2007. For the rest of the patient's detailed history and physical, please see her history and ph ysical. ASSESSMENT: This is a 41-year-old female, G1 at 40 weeks who presents for induction of labor. HOSPITAL COURSE: She had a couple of initially elevated blood pressures that thought was due to anxi ety and cuff issues. These were resolved and unfortunately her blood pressures remained quite elevat ed in the severe range. She denied signs and symptoms of preeclampsia. She was given labetalol 20 m g x1 and magnesium sulfate was started for severe gestational hypertension. Labs were normal and we p roceeded with induction. She had a Ramos bulb placed and a low-dose pit was started. She remained o n magnesium sulfate prophylaxis and continued induction. Eventually, the Ramos bulb came out and she was ruptured for clear fluid and intrauterine pressure catheter was placed day #1 at approximately 7 o'clock for improved tracings. She then subsequently underwent an epidural anesthetic. At around 2 o'clock in the morning, she was found to be 7-8 cm and her pit was at 24. She was given a pit break t o restart at low dose and continue up again. Unfortunately, the patient did not change past 7-8 cm. She had an IUPC and we had a difficult time g etting the patient to have an adequate contraction pattern. The fetus remained reassuring mostly cat egory 1 with occasional variables. There was some question that she was making some slow positive pr ogress, but she continued to be around 8 cm, 90%, -2. At about 2 o'clock in the afternoon, the patien t was not sure if she could continue to do this, was quite tired, had had her epidural redosed multip le times, but given that it seems like she is making some progress, she was willing to continue. She got epidural rebolused again and then approximately 2 hours later, became quite painful. She did not yet have adequate contractions and for all intents and purposes had made minimal change since 2 a.m. Her cervix was 8, 90% with some swelling and -1. A long conversation was held with the patient expl aining that she may still make change and achieve vaginal delivery if we can get contractions adequat e, but she was no longer willing to continue with labor and requested section. The risks, b enefits, and side effects of were discussed with the patient and she wished to proceed. The patient underwent a primary low transverse section to deliver a viable male . Est imated blood loss was 700 mL. Infant was in cephalic presentation, wedged into the pelvis. Apgars we re 6, 8 and 9. There were normal appearing tubes and ovaries bilaterally. The patient's course was essentially uncomplicated. She remained on magnesium sulfate pro phylaxis for 24 hours. Her pressures improved significantly. The baby was unfortunately transferred to the NICU at [facility] for TTN. After 24 hours, the mag was discontinued, she was diuresing well and her blood pressures were within normal limits and she was transferred to the floor. On postopera tive day #1, she was doing quite well. The Ramos was removed, she voided, she ambulated without diff iculty. Her pain was well controlled on oral pain meds. We did watch her pressures throughout the d ay on postoperative day #2 and although she had some borderline pressures, most of them, were reasona ble. The patient decided to stay overnight because she wanted to watch the pressures. She was disch arged home the following morning. She was continued on labetalol 200 mg p.o. b.i.d. with short-term f ollowup in the office. Job ID: [id number]
== END 2022-03-06 11:55 | disposition home or self-care (01) | DRG 787 ==
LOC: 4S1 07:58 → 4E2 03-04 16:53